=== PATIENT | male | born 1945 | race Caucasian/White ===

== ENCOUNTER 2018-07-19 00:22 | Emergency (ER) | payer OTHER ==
[2018-07-19] MEDS ORDERED: NA CHLORIDE 0.9% 1,000 ML ONE ×3 (00:40→02:58)
[2018-07-19] MEDS ORDERED: THIAMINE 200 MG/2 ML INJ ONE (01:11)
[2018-07-19] MEDS ORDERED: TETANUS & DIPHTHERIA TOX,ADULT 0.5 ML VIAL ONE (01:12)
[2018-07-19] MEDS ORDERED: MULTIVITAMINS 10 ML VIAL (INJ) IV ONE (01:12)
[2018-07-19] MEDS ORDERED: FOLIC ACID 5 MG/ML VIAL ONE (01:13)
[2018-07-19] MEDS ORDERED: ONDANSETRON 4 MG/2 ML VIAL ONE (01:24)
[2018-07-19] MEDS ORDERED: MORPHINE 2 MG/ML SYR ONE (01:24)
[2018-07-19 01:27] LABS: Protime INR 1.02
[2018-07-19 01:28] LABS: Absolute Lymphocytes (CBC) 4.3 K/uL (0.7-4.9); Absolute Monocytes 1.1 K/uL (0.1-1.3); Absolute Neutrophil 2.7 K/uL (1.8-8.0); Eosinophils % 4.9 % (0-4.4); Hematocrit 47.4 % (39.6-49.0); Lymphocytes % 49.9 % (15.3-44.8); MPV 9.3 fL (7.6-11.3); Monocytes % 12.4 % (3.3-12.3); RBC Red Blood Cell Count 4.33 M/uL (4.33-5.43)
[2018-07-19 01:40] LABS: ALT/SGPT 69 U/L (12-78); AST/SGOT 108 U/L (15-37); Albumin 3.5 g/dL (3.4-5.0); Alkaline Phosphatase 102 U/L (45-117); BUN Blood Urea Nitrogen 4 mg/dL (7-18); Bicarbonate 24 mmol/L (21-32); Bilirubin Direct 0.1 mg/dL (0-0.2); Bilirubin Total 0.4 mg/dL (0.2-1.0); Glucose Level 114 mg/dL (74-106); Magnesium 1.9 mg/dL (1.8-2.4); NT PRO-BNP 21 pg/mL (<125); Potassium 3.3 mmol/L (3.5-5.1); Protein, Total 7.5 g/dL (6.4-8.2); Sodium Level 140 mmol/L (136-145); Troponin (Emerg Dept Use Only) < 0.02 ng/mL (0.0-0.045)
[2018-07-19] MEDS ORDERED: CEFAZOLIN SODIUM 1 GM/VIAL ONE (01:49)
[2018-07-19] MEDS ORDERED: NA CHLORIDE 0.9% 50 ML IV ONE (01:53)
[2018-07-19 01:56] LABS: Blood Morphology Comment NOTED (NOT SEEN); Macrocytosis 1+; Platelet Estimate ADEQ
--- NOTE | 2018-07-19 02:05 | ER ---
Nurse's Notes [facility] Name: Mark Martin Age: 73 yrs Sex: Male : 1945 Arrival Date: 07/19/2018 Time: 00:24 Bed 3 Private MD: Diagnosis: Compound fractures distal left radius and ulna Presentation: 07/19 00:19 Presenting complaint: EMS states: EMS called to patient home, pt reports he was trying ea to go from chair to walker and lost his footing, pt reports he tried to catch himself with his left hand. Pt reports pain to left hand, EMS reports left wrist open fx. Care prior to arrival: EMS splinted left hand. Mechanism of Injury: Fall. Trauma event details: Injury occurred in the [facility], Injury occurred: at home. Injury occurred: July 19, 2018 Injury occurred at: 23:50. 00:19 Acuity: OZIEL 2 ea 00:19 Method Of Arrival: EMS: [facility] ea 00:19 Transition of care: patient was not received from another setting of care. Onset of ea symptoms was July 19, 2018. Risk Assessment: Do you want to hurt yourself or someone else? Patient reports no desire to harm self or others. Initial Sepsis Screen: Does the patient meet any 2 criteria? Systolic BP < 90 mmHg. Does the patient have a suspected source of infection? No. Patient's initial sepsis screen is negative. Trauma Activation: Alert Physician: ED Physician; Name: Silvio; Notified At: 00:22; Arrived At: 00:22 Physician: General Surgeon; Name: ; Notified At: 00:22; Arrived At: Physician: Radiology; Name: Chepe; Notified At: 00:22; Arrived At: 00:24 Physician: Respiratory; Name: ; Notified At: 00:22; Arrived At: Physician: Lab; Name: ; Notified At: 00:22; Arrived At: Historical: - Allergies: 01:26 No Known Allergies; ea - Home Meds: 01:26 None [Active]; ea - PMHx: 01:26 None; ea - PSHx: 01:26 None; ea - Immunization history:: Adult Immunizations up to date. - Social history:: Smoking status: Patient/guardian denies using tobacco, Patient uses alcohol. - Immunization history: Last tetanus immunization: unknown. - Ebola Screening: : No symptoms or risks identified at this time. Screenin:44 Abuse screen: Denies threats or abuse. Denies injuries from another. Nutritional rr5 screening: No deficits noted. Tuberculosis screening: No symptoms or risk factors identified. Fall Risk IV access (20 points). Gait- Impaired (20 pts.). Total Abrams Fall Scale indicates Low Risk Score (25-44 pts). Fall prevention measures have been instituted. Side Rails Up X 2 Placed close to Nursing Station Frequent Obs/Assesments occuring Family Present and informed to notify staff if they need to leave bedside As available Patient and Family Educated on Fall Prevention Program and strategies. Primary Survey: 00:19 NO uncontrolled hemorrhage observed. Breathing/Chest: Respiratory pattern: regular, ea Respiratory effort: spontaneous, unlabored, Chest inspection: symmetrical rise and fall of the chest. Circulation: Skin color: pink, Skin temperature: warm. Disability Alert. Exposure/Environment: All clothing and personal items were removed. Forensic evidence collection is not deemed to be indicated at this time. Items placed in patient belonging bag. 01:27 Reassessment Airway Airway Patent Breathing/Chest Respiratory pattern Regular ea Respiratory effort Spontaneous Unlabored Chest inspection Symmetrical Circulation Color [place] Disability Alert. Secondary Survey: 00:57 Injury Description: fracture to is located left wrist. ea Assessment: 00:19 General: Appears in no apparent distress. Behavior is calm, cooperative, Smells of ea alcohol. Pain: Complains of pain in left hand Quality of pain is described as aching, Pain began 30 min ago. Is continuous. Neuro: Level of Consciousness is awake, alert, obeys commands, Oriented to person, place, time, situation. Cardiovascular: Patient's skin is warm and dry. Respiratory: Airway is patent Respiratory effort is even, unlabored, Respiratory pattern is regular, symmetrical. Derm: Skin is pink, warm \T\ dry. Injury Description: Deformity sustained to left wrist is puncture noted. 00:19 GI: No deficits noted. : No deficits noted. EENT: No deficits noted. Musculoskeletal: rr5 Capillary refill < 3 seconds, left hand and wrist area Swelling present in left hand Reports pain in left hand. 00:25 Reassessment: Patient appears in no apparent distress at this time. ED provider seen rr5 the patient with order made and carried out. put on Trendelenburg position. 01:05 Reassessment: Patient appears in no apparent distress at this time. Patient is alert, rr5 oriented x 3, equal unlabored respirations, skin warm/dry/pink. complaining of left hand pain. BP 100/70mmHg ED provider aware with order made and carried out. 02:00 Reassessment: Patient appears in no apparent distress at this time. Patient is alert, rr5 oriented x 3, equal unlabored respirations, skin warm/dry/pink. Patient states feeling better. Patient states symptoms have improved. 02:56 Reassessment: Patient appears in no apparent distress at this time. Patient is alert, rr5 oriented x 3, equal unlabored respirations, skin warm/dry/pink. endorsed to [facility] vitally stable, with IV cannula G20 at right forearm infusing intact infusing well ongoing IVF NS. splint applied at left forearm. Patient states symptoms have improved. Vital Signs: 00:19 BP 86 / 64; Pulse 75; Resp 18; Temp 97.4(O); Pulse Ox 95% on R/A; Weight 68.04 kg; ea Height 5 ft. 7 in. (170.18 cm); Pain 9/10; 00:45 BP 91 / 55; Pulse 89; Resp 19; Pulse Ox 99% ; rr5 01:00 BP 100 / 70; Pulse 84; Resp 16; Pulse Ox 100% on R/A; rr5 01:15 BP 105 / 61; Pulse 86; Resp 15; Pulse Ox 98% ; rr5 01:53 BP 110 / 72; Pulse 98; Resp 17; Pulse Ox 99% ; rr5 02:09 BP 102 / 65; Pulse 95; Resp 17; Pulse Ox 99% ; rr5 02:41 BP 100 / 74; Pulse 100; Resp 19; Pulse Ox 99% ; rr5 00:19 Body Mass Index 23.49 (68.04 kg, 170.18 cm) ea Lena Coma Score: 00:19 Eye Response: spontaneous(4). Verbal Response: oriented(5). Motor Response: obeys ea commands(6). Total: 15. Trauma Score (Adult): 00:19 Eye Response: spontaneous(1); Verbal Response: oriented(1); Motor Response: obeys ea commands(2); Systolic BP: 76 to 89 mm Hg(3); Respiratory Rate: 10 to 29 per min(4); Sue Score: 15; Trauma Score: 11 ED Course: 00:19 Patient maintains SpO2 saturation greater than 95% on room air. Thermoregulation: warm ea blanket given to patient. 00:19 Arm band placed on right wrist. Patient placed in an exam room, on a stretcher, on ea monitoring analyst, on pulse oximetry. 00:24 Patient arrived in ED. fc 00:25 Beverly Rodriguez, MIKEY is Primary Nurse. ea 00:30 Inserted saline lock: 20 gauge in right forearm, using aseptic technique. Blood rr5 collected. 00:32 Triage completed. ea 00:36 Larry Anguiano MD is Attending Physician. pkl 00:44 Patient has correct armband on for positive identification. Placed in gown. Bed in low rr5 position. Call light in reach. Side rails up X2. shelter monitor on. Pulse ox on. NIBP on. 01:02 XRAY Chest (1 view) In Process Unspecified. EDMS 01:14 Wrist Left (3 View) XRAY In Process Unspecified. EDMS 02:39 No provider procedures requiring assistance completed. Patient transferred, IV remains rr5 in place. intact, No redness/swelling at site. Administered Medications: 00:30 Drug: NS 0.9% 500 ml Route: IV; Rate: bolus; Site: right forearm; rr5 01:00 Follow up: Response: No adverse reaction; IV Status: Completed infusion; IV Intake: rr5 500ml 01:00 Drug: Banana Bag - (NS 0.9% 1000 ml, foLIC Acid 1 mg, Thiamine 100 mg, Multivitamin 1 rr5 amp) Route: IV; Rate: calculated rate; Site: right forearm; 02:30 Follow up: Response: No adverse reaction; IV Status: Infusion continued upon transfer; rr5 IV Intake: 100ml 02:52 Follow up: IV Status: Order to discontinue infusion; changed to NS infusion for transfe rr5 while going to other facility. 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 Exp: rr5 04/15/2020. Lot #: [id number]. } Route: IM; Site: right deltoid; 02:29 Follow up: Response: No adverse reaction rr5 01:25 Drug: Zofran 4 mg Route: IVP; Site: right forearm; rr5 02:29 Follow up: Response: No adverse reaction rr5 01:27 Drug: morphine 2 mg Route: IVP; Site: right forearm; rr5 02:29 Follow up: Response: No adverse reaction rr5 01:40 Dru grams of (Ancef 1 grams, NS 0.9% 50 ml) Route: IVPB; Site: right forearm; rr5 02:09 Follow up: Response: No adverse reaction; IV Status: Completed infusion; IV Intake: [id number] 02:10 Drug: Potassium Chloride 10 mEq Route: IV; Rate: calculated rate; Site: right forearm; rr5 02:50 Follow up: Response: No adverse reaction; IV Status: Completed infusion; IV Intake: [id number] 02:50 Drug: NS 0.9% 1000 ml Route: IV; Rate: 125 ml/hr; Site: right forearm; rr5 03:01 Follow up: Response: No adverse reaction; IV Status: Infusion continued upon transfer rr5 Intake: 01:00 IV: 500ml; Total: 500ml. rr5 02:09 IV: 50ml; Total: 550ml. rr5 02:30 IV: 100ml; Total: 650ml. rr5 02:41 IV: 600ml (IV Fluid); Total: 1250ml. rr5 02:50 IV: 50ml; Total: 1300ml. rr5 Outcome: 02:04 ER care complete, transfer ordered by . pkjoel 02:35 Transferred by ground EMS to [facility], Transfer form completed. Note: rr[facility]. 02:35 Condition: stable 02:35 Instructed on the need for transfer. 02:42 Patient's length of stay was not longer than 2 hours. rr5 03:02 Patient left the ED. rr5 Signatures: Dispatcher [employer] EDMS Larry Anguiano MD MD pkl Chretien, Felicia, RN Beverly Thakkar RN RN ea Roque, Raymond RN RN rr5 Corrections: (The following items were deleted from the chart) 02:19 02:10 Reassessment: Patient appears in no apparent distress at this time. Patient is rr5 alert, oriented x 3, equal unlabored respirations, skin warm/dry/pink. complaining of left hand pain. BP 100/70mmHg ED provider aware with order made and carried out. rr5
--- NOTE | 2018-07-19 02:05 | EDPHYS ---
Physician Documentation [facility] Name: Mark Martin Age: 73 yrs Sex: Male : 1945 Arrival Date: 07/19/2018 Time: 00:24 Bed 3 Private MD: ED Physician Larry Anguiano HPI: 07/19 00:36 This 73 yrs old Male presents to ER via EMS with complaints of Trauma pkl Complaint. 00:36 The patient or guardian reports deformity, injury, pain. The complaints affect the left pkl wrist diffusely. Context: resulted from a fall. Onset: The symptoms/episode began/occurred just prior to arrival. Associated signs and symptoms: The patient has no apparent associated signs or symptoms. Historical: - Allergies: : No Known Allergies; ea - Home Meds: : None [Active]; ea - PMHx: : None; ea - PSHx: :26 None; ea - Immunization history:: Adult Immunizations up to date. - Social history:: Smoking status: Patient/guardian denies using tobacco, Patient uses alcohol. - Immunization history: Last tetanus immunization: unknown. - Ebola Screening: : No symptoms or risks identified at this time. ROS: 00:36 Eyes: Negative for injury, pain, redness, and discharge, ENT: Negative for injury, pkl pain, and discharge, Neck: Negative for injury, pain, and swelling, Cardiovascular: Negative for chest pain, palpitations, and edema, Respiratory: Negative for shortness of breath, cough, wheezing, and pleuritic chest pain, Abdomen/GI: Negative for abdominal pain, nausea, vomiting, diarrhea, and constipation, Back: Negative for injury and pain, : Negative for injury, bleeding, discharge, and swelling. 00:36 MS/extremity: Positive for injury or acute deformity, pain, tenderness, of the left wrist, Puncture wound noted at volar aspect left wrist. 00:36 Neuro: Negative for altered mental status. Exam: 00:36 Hand exam: Exam is positive for deformity, injury, pain, tenderness, puncture wound pkl at volar aspect left wrist. 00:36 Skin: puncture wound at volar aspect left wrist. 00:36 Head/Face: Normocephalic, atraumatic. Eyes: Pupils equal round and reactive to light, extra-ocular motions intact. Lids and lashes normal. Conjunctiva and sclera are non-icteric and not injected. Cornea within normal limits. Periorbital areas with no swelling, redness, or edema. ENT: Nares patent. No nasal discharge, no septal abnormalities noted. Tympanic membranes are normal and external auditory canals are clear. Oropharynx with no redness, swelling, or masses, exudates, or evidence of obstruction, uvula midline. Mucous membranes moist. Neck: Trachea midline, no thyromegaly or masses palpated, and no cervical lymphadenopathy. Supple, full range of motion without nuchal rigidity, or vertebral point tenderness. No Meningismus. Chest/axilla: Normal chest wall appearance and motion. Nontender with no deformity. No lesions are appreciated. Cardiovascular: Regular rate and rhythm with a normal S1 and S2. No gallops, murmurs, or rubs. Normal PMI, no JVD. No pulse deficits. Respiratory: Lungs have equal breath sounds bilaterally, clear to auscultation and percussion. No rales, rhonchi or wheezes noted. No increased work of breathing, no retractions or nasal flaring. Abdomen/GI: Soft, non-tender, with normal bowel sounds. No distension or tympany. No guarding or rebound. No evidence of tenderness throughout. Back: No spinal tenderness. No costovertebral tenderness. Full range of motion. Neuro: Awake and alert, GCS 15, oriented to person, place, time, and situation. Cranial nerves II-XII grossly intact. Motor strength 5/5 in all extremities. Sensory grossly intact. Cerebellar exam normal. Normal gait. 00:36 Musculoskeletal/extremity: Extremities: grossly normal except: noted in the left wrist: deformity, pain, puncture, tenderness. Vital Signs: 00:19 BP 86 / 64; Pulse 75; Resp 18; Temp 97.4(O); Pulse Ox 95% on R/A; Weight 68.04 kg; ea Height 5 ft. 7 in. (170.18 cm); Pain 9/10; 00:45 BP 91 / 55; Pulse 89; Resp 19; Pulse Ox 99% ; rr5 01:00 BP 100 / 70; Pulse 84; Resp 16; Pulse Ox 100% on R/A; rr5 01:15 BP 105 / 61; Pulse 86; Resp 15; Pulse Ox 98% ; rr5 01:53 BP 110 / 72; Pulse 98; Resp 17; Pulse Ox 99% ; rr5 02:09 BP 102 / 65; Pulse 95; Resp 17; Pulse Ox 99% ; rr5 02:41 BP 100 / 74; Pulse 100; Resp 19; Pulse Ox 99% ; rr5 00:19 Body Mass Index 23.49 (68.04 kg, 170.18 cm) ea Wal[place] Coma Score: 00:19 Eye Response: spontaneous(4). Verbal Response: oriented(5). Motor Response: obeys ea commands(6). Total: 15. Trauma Score (Adult): 00:19 Eye Response: spontaneous(1); Verbal Response: oriented(1); Motor Response: obeys ea commands(2); Systolic BP: 76 to 89 mm Hg(3); Respiratory Rate: 10 to 29 per min(4); Waldorf Score: 15; Trauma Score: 11 MDM: 00:36 Patient medically screened. pkl 02:00 Data reviewed: vital signs, nurses notes, lab test result(s), radiologic studies, plain pkl films. 02:00 ED course: Talked to Dr. Persaud, transfer to [facility]. pkl 04 00:38 Order name: Basic Metabolic Panel; Complete Time: 02:05 cm6 07/19 00:38 Order name: CBC with Diff; Complete Time: 02:05 cm6 07/19 00:38 Order name: LFT's; Complete Time: 02:05 cm6 07/19 00:38 Order name: Magnesium; Complete Time: 02:05 cm6 07/19 00:38 Order name: NT PRO-BNP; Complete Time: 02:05 cm6 07/19 00:38 Order name: PT-INR; Complete Time: 02:05 cm6 07/19 00:25 Order name: Wrist Left (3 View) XRAY fc 04 00:38 Order name: Troponin (emerg Dept Use Only); Complete Time: 02:05 cm6 07/19 00:38 Order name: XRAY Chest (1 view) cm6 07/19 00:43 Order name: ETOH Level; Complete Time: 02:05 pkl 07/19 01:30 Order name: Manual Differential; Complete Time: 02:05 EDMS 07/19 01:59 Order name: Wound Culture rr5 04/06 00:38 Order name: EKG; Complete Time: 00:39 cm6 07/19 00:38 Order name: Cardiac monitoring; Complete Time: 00:43 cm6 07/19 00:38 Order name: EKG - Nurse/Tech; Complete Time: 00:43 cm6 07/19 00:38 Order name: IV Saline Lock; Complete Time: 00:43 cm6 07/19 00:38 Order name: Labs collected and sent; Complete Time: 00:43 cm6 07/19 00:38 Order name: O2 Per Protocol; Complete Time: 00:43 cm6 07/19 00:38 Order name: O2 Sat Monitoring; Complete Time: 00:43 cm6 Administered Medications: 00:30 Drug: NS 0.9% 500 ml Route: IV; Rate: bolus; Site: right forearm; rr5 01:00 Follow up: Response: No adverse reaction; IV Status: Completed infusion; IV Intake: rr5 500ml 01:00 Drug: Banana Bag - (NS 0.9% 1000 ml, foLIC Acid 1 mg, Thiamine 100 mg, Multivitamin 1 rr5 amp) Route: IV; Rate: calculated rate; Site: right forearm; 02:30 Follow up: Response: No adverse reaction; IV Status: Infusion continued upon transfer; rr5 IV Intake: 100ml 02:52 Follow up: IV Status: Order to discontinue infusion; changed to NS infusion for transfe rr5 while going to other facility. 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 Exp: rr5 04/15/2020. Lot #: [id number]. } Route: IM; Site: right deltoid; 02:29 Follow up: Response: No adverse reaction rr5 01:25 Drug: Zofran 4 mg Route: IVP; Site: right forearm; rr5 02:29 Follow up: Response: No adverse reaction rr5 01:27 Drug: morphine 2 mg Route: IVP; Site: right forearm; rr5 02:29 Follow up: Response: No adverse reaction rr5 01:40 Dru grams of (Ancef 1 grams, NS 0.9% 50 ml) Route: IVPB; Site: right forearm; rr5 02:09 Follow up: Response: No adverse reaction; IV Status: Completed infusion; IV Intake: [id number] 02:10 Drug: Potassium Chloride 10 mEq Route: IV; Rate: calculated rate; Site: right forearm; rr5 02:50 Follow up: Response: No adverse reaction; IV Status: Completed infusion; IV Intake: [id number] 02:50 Drug: NS 0.9% 1000 ml Route: IV; Rate: 125 ml/hr; Site: right forearm; rr5 03:01 Follow up: Response: No adverse reaction; IV Status: Infusion continued upon transfer rr5 Disposition: 07/19/18 02:04 Transfer ordered to [facility]. Diagnosis is Compound fractures distal left radius and ulna. - Reason for transfer: Higher level of care. - Accepting physician is Dr. Bah. - Condition is Stable. - Problem is new. - Symptoms are unchanged. Signatures: Dispatcher [employer] EDMS Larry Anguiano MD MD pkBeverly Suazo RN Brent Siddiqui ea, RN RN rr5 Donna Cantu cm6 Corrections: (The following items were deleted from the chart) 01:13 01:09 Wrist Left 3 View ordered. EDMI EDMS 03:02 02:04 07/19/2018 02:04 Transfer ordered to [facility]. rr5 Diagnosis is Compound fractures distal left radius and ulna. Reason for transfer: Higher level of care. Accepting physician is Dr. Bah. Condition is Stable. Problem is new. Symptoms are unchanged. pkl
[2018-07-19] MEDS ORDERED: KCL 20 MEQ/100 mL IVPB 20 MEQ/100 ML BAG IV ONE (02:22)
[2018-07-19 04:13] VITALS: O2SAT 99
[2018-07-19 04:16] VITALS: BP 100/74
--- NOTE | 2018-07-19 07:53 | RAD REPORT ---
EXAM DESCRIPTION: RAD - Wrist Left 3 View - 07/19/2018 1:14 am CLINICAL HISTORY: Trip and fall, left hand and wrist pain COMPARISON: None. FINDINGS: Comminuted fracture of the distal radius is present. There is dorsal dislocation 1 full sh aft width and approximately 40 degree dorsal angulation deformity as well. Distal ulna fracture dislo cation is present with 1 full shaft width dorsal displacement. No pathologic component. Patient has advanced degenerative change at the trapezium first metacarpal a rticulation. 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 No foreign body or oth er soft tissue abnormality. IMPRESSION: Comminuted fracture dislocation of the right distal radius and ulna.
--- NOTE | 2018-07-19 07:54 | RAD REPORT ---
EXAM DESCRIPTION: RAD - Chest Single View - 07/19/2018 1:01 am CLINICAL HISTORY: Preop chest, fracture dislocation right wrist pending surgical repair COMPARISON: August 2014 TECHNIQUE: AP portable chest image was obtained 0040 hours . FINDINGS: No acute lung parenchymal process. Low lung volume accentuates interstitial pattern. No ac adebayo failure or volume overload suspected. Heart and vasculature are normal. No measurable pleural eff usion and no pneumothorax. No acute bony abnormality seen. No acute aortic findings suspected. IMPRESSION: No acute cardiopulmonary process. No suspicious change from comparison.
--- NOTE | 2018-07-22 11:29 | EKG ---
Test Date: 2018-07-19 Test Time: 00:41:59 [employer] Applicator: MEASUREMENT RESULTS: Intervals: Rate: 91 GA: 176 QRSD: 88 QT: 378 QTc: 464 [place]: P: 59 GA: 176 QRS: 69 T: 51 INTERPRETIVE STATEMENTS: Normal sinus rhythm Normal ECG Compared to ECG 08/24/2014 13:55:01 Sinus tachycardia no longer present Electronically Signed On 07-19-18 16:43:43 CDT by Toy Lomeli
== END 2018-07-19 03:02 | disposition short-term general hospital (02) ==
LOC: ER 00:22
DX: S52.502B Unspecified fracture of the lower end of left radius, initial encounter for open fracture type I or II (principal); S52.202B Unspecified fracture of shaft of left ulna, initial encounter for open fracture type I or II; W19.XXXA Unspecified fall, initial encounter; Y93.9 Activity, unspecified; Y92.9 Unspecified place or not applicable; Z23 Encounter for immunization
CPT/HCPCS: 96365; 96367; 96361; 96368; 93005; 87070; 85025; 80048; 36415; 80320; 83735; 87205; 85610; 80076; 84484; 83880; 71045; 73110; 90714; 96375; 99285; J3411; J2270; J7030 ×3; J2405; J0690

== ENCOUNTER 2019-03-31 17:34 | Emergency (ER) | payer OTHER ==
--- OUTSIDE RECORDS SUMMARY | 2019-03-31 17:36 | XMS REPORT ---
:1945 [facility] Address [address] [place] [address] Dr. Nicolas [address] [place] [id number] Care Team Providers Name Role Phone Unavailable Unavailable Unavailable Problems This patient has no known problems. Allergies, Adverse Reactions, Alerts This patient has no known allergies or adverse reactions. Medications This patient has no known medications. Encounters Start End Encounter Admission Attending Care Care Encounter Date/Time Date/Time Type Type Clinicians Facility Department ID 2018-07-19 Inpatient [facility] MED [id number] 05:29:00
--- NOTE | 2019-03-31 18:55 | RAD REPORT ---
EXAM DESCRIPTION: CT - Head Brain Wo Cont - 03/31/2019 6:27 pm CLINICAL HISTORY: Fall, trauma the left-side of head COMPARISON: None. TECHNIQUE: Axial 5 mm thick images of the head were obtained without IV contrast. All CT scans are performed using dose optimization technique as appropriate and may include automated exposure control or mA/KV adjustment according to patient size. FINDINGS: No intracranial hemorrhage, mass, edema or shift of mid-line structures. No acute infarcti on changes seen. Mild to moderate atrophy and chronic ischemic changes are present. Ventricles are in proportion to volume loss. Arterial and physiologic calcifications are present. Mastoid air cells and visualized portions of the paranasal sinuses are clear. No acute bony findings. IMPRESSION: No hemorrhage, edema or acute CT Head finding. Mild to moderate atrophy and chronic ischemic change with ventricles in proportion.
--- NOTE | 2019-03-31 19:05 | ER ---
Nurse's Notes [facility] Name: Mark Martin Age: 73 yrs Sex: Male : 1945 Arrival Date: 03/31/2019 Time: 17:35 Bed 6 Private MD: Anastacio Guaman E Diagnosis: Superficial injury of head Presentation: 03/31 17:45 Presenting complaint: Patient states: Was washing dishes, then turned to get phone and ss fell from standing position, striking L side of forehead on dean of men. Denies pain, Denies LOC. Pt states, "I already do not have any balance, and I also drink every day. I've had 5 shots of vodka mixed with OJ". Transition of care: patient was not received from another setting of care. Onset of symptoms was March 31, 2019. Risk Assessment: Do you want to hurt yourself or someone else? Patient reports no desire to harm self or others. Initial Sepsis Screen: Does the patient meet any 2 criteria? HR > 90 bpm. Does the patient have a suspected source of infection? No. Patient's initial sepsis screen is negative. Care prior to arrival: None. 17:45 Method Of Arrival: Ambulatory ss 17:45 Acuity: OZIEL 4 ss Triage Assessment: 17:45 General: Appears in no apparent distress. comfortable, Behavior is calm, cooperative, bp appropriate for age. Pain: Complains of pain in forehead. EENT: No deficits noted. Neuro: No deficits noted. Cardiovascular: Rhythm is sinus tachycardia. Respiratory: No deficits noted. GI: No signs and/or symptoms were reported involving the gastrointestinal system. : No signs and/or symptoms were reported regarding the genitourinary system. Derm: No deficits noted. Musculoskeletal: No deficits noted. Historical: - Allergies: 17:48 No Known Allergies; ss - Home Meds: 17:48 None [Active]; ss - PMHx: 17:48 neuropathy; ss - PSHx: 17:48 Knee surgery; wrist; ss - Immunization history:: Adult Immunizations up to date. - Social history:: Smoking status: Patient uses tobacco products, smokes one pack cigarettes per day. Patient uses alcohol, on a daily basis. - Ebola Screening: : Patient denies exposure to infectious person Patient denies travel to an Ebola-affected area in the 21 days before illness onset. Screenin:23 Abuse screen: Denies threats or abuse. Denies injuries from another. Nutritional bp screening: No deficits noted. Tuberculosis screening: No symptoms or risk factors identified. Fall Risk None identified. Assessment: 17:45 General: SEE TRIAGE NOTE. bp 18:23 Reassessment: PT TO CT. bp 18:44 Reassessment: PT RETURNED FROM CT. NEUROVASCULAR INTACT. bp 19:18 Reassessment: DC instructions given to patient and patient agree with the POC and to jb4 follow up with PCP. Vital Signs: 17:44 BP 109 / 76; Pulse 104; Resp 18; Temp 98.1(O); Pulse Ox 95% on R/A; Weight 65.77 kg; ss Height 5 ft. 7 in. (170.18 cm); Pain 0/10; 18:50 BP 112 / 72; Pulse 95; Resp 16; Pulse Ox 91% ; Pain 0/10; vc 17:44 Body Mass Index 22.71 (65.77 kg, 170.18 cm) ED Course: 17:35 Patient arrived in ED. am2 17:36 Anastacio Guaman MD is Private Physician. am2 17:44 Arm band placed on right wrist. ss 17:47 Triage completed. ss 17:48 [facility] jr8 17:48 Anastacio Joshi MD is Attending Physician. jr8 18:00 Thor Ramesh, MIKEY is Primary Nurse. bp 18:23 Patient has correct armband on for positive identification. Bed in low position. Call bp light in reach. Side rails up X2. 19:04 Anastacio Guaman MD is Referral Physician. jr8 19:17 No provider procedures requiring assistance completed. Patient did not have IV access jb4 during this emergency room visit. Administered Medications: No medications were administered Outcome: 19:04 Discharge ordered by . jr8 19:17 Discharged to home ambulatory. jb4 19:17 Condition: stable 19:17 Discharge instructions given to patient, Instructed on discharge instructions, follow up and referral plans. Demonstrated understanding of instructions, follow-up care, medications. 19:18 Patient left the ED. jb4 Signatures: Karley Garcia RN RN Thomas Roldan PA PA 8 Marlon Gillespie RN RN jb4 Yeskia Lubin am2 Thor Ramesh RN RN bp Lisbeth Donovan, RN RN vc
--- NOTE | 2019-03-31 19:06 | EDPHYS ---
Physician Documentation [facility] Name: Mark Martin Age: 73 yrs Sex: Male : 1945 Arrival Date: 03/31/2019 Time: 17:35 Bed 6 Private MD: Anastacio Guaman E ED Physician Anastacio Joshi HPI: 03/31 18:11 This 73 yrs old Male presents to ER via Ambulatory with complaints of Fall jr8 Injury, forehead contusion. 18:11 Details of fall: The patient fell from an upright position, while standing. Onset: The jr8 symptoms/episode began/occurred acutely, today. Associated injuries: The patient sustained injury to the head, contusion, tenderness. Severity of symptoms: At their worst the symptoms were mild, in the emergency department the symptoms are unchanged. The patient has not experienced similar symptoms in the past. The patient has not recently seen a physician. 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 Denies LOC. Pain to head. Denies neck pain or pain anywhere else . Historical: - Allergies: 17:48 No Known Allergies; ss - Home Meds: 17:48 None [Active]; ss - PMHx: 17:48 neuropathy; ss - PSHx: 17:48 Knee surgery; wrist; ss - Immunization history:: Adult Immunizations up to date. - Social history:: Smoking status: Patient uses tobacco products, smokes one pack cigarettes per day. Patient uses alcohol, on a daily basis. - Ebola Screening: : Patient denies exposure to infectious person Patient denies travel to an Ebola-affected area in the 21 days before illness onset. ROS: 18:11 Eyes: Negative for injury, pain, redness, and discharge, ENT: Negative for injury, jr8 pain, and discharge, Neck: Negative for injury, pain, and swelling, Cardiovascular: Negative for chest pain, palpitations, and edema, Respiratory: Negative for shortness of breath, cough, wheezing, and pleuritic chest pain, Abdomen/GI: Negative for abdominal pain, nausea, vomiting, diarrhea, and constipation, Back: Negative for injury and pain, MS/Extremity: Negative for injury and deformity. 18:11 Skin: Positive for hematoma, of the face. 18:11 Neuro: Positive for headache, Negative for altered mental status, dizziness, gait disturbance, loss of consciousness, syncope. Exam: 18:11 Eyes: Pupils equal round and reactive to light, extra-ocular motions intact. Lids and jr8 lashes normal. Conjunctiva and sclera are non-icteric and not injected. Cornea within normal limits. Periorbital areas with no swelling, redness, or edema. ENT: Nares patent. No nasal discharge, no septal abnormalities noted. Tympanic membranes are normal and external auditory canals are clear. Oropharynx with no redness, swelling, or masses, exudates, or evidence of obstruction, uvula midline. Mucous membranes moist. Neck: Trachea midline, no thyromegaly or masses palpated, and no cervical lymphadenopathy. Supple, full range of motion without nuchal rigidity, or vertebral point tenderness. No Meningismus. Chest/axilla: Normal chest wall appearance and motion. Nontender with no deformity. No lesions are appreciated. Cardiovascular: Regular rate and rhythm with a normal S1 and S2. No gallops, murmurs, or rubs. Normal PMI, no JVD. No pulse deficits. Respiratory: Lungs have equal breath sounds bilaterally, clear to auscultation and percussion. No rales, rhonchi or wheezes noted. No increased work of breathing, no retractions or nasal flaring. Abdomen/GI: Soft, non-tender, with normal bowel sounds. No distension or tympany. No guarding or rebound. No evidence of tenderness throughout. Back: No spinal tenderness. No costovertebral tenderness. Full range of motion. Skin: Warm, dry with normal turgor. Normal color with no rashes, no lesions, and no evidence of cellulitis. MS/ Extremity: Pulses equal, no cyanosis. Neurovascular intact. Full, normal range of motion. Neuro: Awake and alert, GCS 15, oriented to person, place, time, and situation. Cranial nerves II-XII grossly intact. Motor strength 5/5 in all extremities. Sensory grossly intact. Cerebellar exam normal. Normal gait. 18:11 Head/face: Noted is hematoma, that is mild, of the forehead. Vital Signs: 17:44 BP 109 / 76; Pulse 104; Resp 18; Temp 98.1(O); Pulse Ox 95% on R/A; Weight 65.77 kg; ss Height 5 ft. 7 in. (170.18 cm); Pain 0/10; 18:50 BP 112 / 72; Pulse 95; Resp 16; Pulse Ox 91% ; Pain 0/10; vc 17:44 Body Mass Index 22.71 (65.77 kg, 170.18 cm) MDM: 17:49 Patient medically screened. jr8 19:04 Data reviewed: vital signs, nurses notes, radiologic studies, CT scan. Data jr8 interpreted: Pulse oximetry: on room air is 96 %. Interpretation: normal. Counseling: I had a detailed discussion with the patient and/or guardian regarding: the historical points, exam findings, and any diagnostic results supporting the discharge/admit diagnosis, radiology results, the need for outpatient follow up, a family practitioner, to return to the emergency department if symptoms worsen or persist or if there are any questions or concerns that arise at home. 03/31 18:09 Order name: CT Head Brain wo Cont jr8 03/31 18:59 Order name: CT; Complete Time: 19:04 EDMS Administered Medications: No medications were administered Disposition: 21:22 Co-signature as Attending Physician, Anastacio Joshi MD I agree with the assessment and wa plan of care. Disposition: 03/31/19 19:04 Discharged to Home. Impression: Superficial injury of head. - Condition is Stable. - Discharge Instructions: Head Injury, Adult, Hematoma. - Medication Reconciliation Form, Thank You Letter, Antibiotic Education, Prescription Opioid Use form. - Follow up: Anastacio Guaman MD; When: As needed; Reason: Recheck today's complaints, Continuance of care, Re-evaluation by your physician. - Problem is new. - Symptoms have improved. Signatures: Dispatcher [employer] EDFL Karley Garcia RN RN Thomas Roldan PA PA jr8 Marlon Gillespie RN RN jb4 Anastacio Joshi MD MD wa Corrections: (The following items were deleted from the chart) 19:18 19:04 03/31/2019 19:04 Discharged to Home. Impression: Superficial injury of head. jb4 Condition is Stable. Forms are Medication Reconciliation Form, Thank You Letter, Antibiotic Education, Prescription Opioid Use. Follow up: Anastacio Guaman; When: As needed; Reason: Recheck today's complaints, Continuance of care, Re-evaluation by your physician. Problem is new. Symptoms have improved. jr8
[2019-03-31 19:24] VITALS: TEMP 98.1
[2019-03-31 19:26] VITALS: BP 112/72; O2SAT 91
== END 2019-03-31 19:18 | disposition home or self-care (01) ==
LOC: ER 17:34
DX: S00.83XA Contusion of other part of head, initial encounter (principal); W18.09XA Striking against other object with subsequent fall, initial encounter; Y93.9 Activity, unspecified; Y92.9 Unspecified place or not applicable; F17.210 Nicotine dependence, cigarettes, uncomplicated
CPT/HCPCS: 70450; 99284

== ENCOUNTER 2021-07-08 20:24 | Emergency (ER) | payer OTHER ==
--- OUTSIDE RECORDS SUMMARY | 2021-07-08 20:27 | XMS REPORT | Continuity of Care Document ---
:1945 Author Organization [facility] t Address [address] [place] [address] Dr. Nicolas [address] [place] [id number] Care Team Providers Name Role Phone Unavailable Unavailable Unavailable Payers Payer Name Policy Type Policy Number Effective Date Expiration Date S [facility] [id number] (MEDICARE 00:00:00 REPLACEMENT HMO) Problems This patient has no known problems. Allergies, Adverse Reactions, Alerts This patient has no known allergies or adverse reactions. Medications This patient has no known medications. Procedures This patient has no known procedures. Encounters Start End Encounter Admission Attending Care Care Encounter Source Date/Time Date/Time Type Type Clinicians Facility Department ID 2018-07-19 Inpatient U [id number] 05:29:00 2021-02-10 2021-02-10 Outpatient [facility] [id number] [facility] 08:01:00 08:01:00 [facility] Results This patient has no known results.
[2021-07-08 21:28] LABS: Absolute Lymphocytes (CBC) 2.5 K/uL (0.7-4.9); Hematocrit 50.4 % (39.6-49.0); Lymphocytes % 32.6 % (15.3-44.8); MPV 9.2 fL (7.6-11.3); RBC Red Blood Cell Count 4.68 M/uL (4.33-5.43)
[2021-07-08 21:38] LABS: Protime INR 0.93
[2021-07-08 21:45] LABS: ALT/SGPT 55 U/L (12-78); AST/SGOT 70 U/L (15-37); Albumin 3.9 g/dL (3.4-5.0); Alkaline Phosphatase 158 U/L (45-117); BUN Blood Urea Nitrogen 7 mg/dL (7-18); Bicarbonate 26 mmol/L (21-32); Bilirubin Direct 0.2 mg/dL (0-0.2); Bilirubin Total 0.5 mg/dL (0.2-1.0); CKMB Creatine Kinase MB 2.5 ng/mL (1.0-3.6); Creatine Phosphokinase 156 U/L (39-308); Glucose Level 96 mg/dL (74-106); Lipase 244 U/L (73-393); Magnesium 2.4 mg/dL (1.8-2.4); Potassium 3.6 mmol/L (3.5-5.1); Protein, Total 8.7 g/dL (6.4-8.2); Sodium Level 137 mmol/L (136-145)
[2021-07-08] MEDS ORDERED: DIPHENHYDRAMINE 50 MG/ML VIAL ONE (22:00)
[2021-07-08] MEDS ORDERED: FAMOTIDINE 20 MG/2 ML VIAL IV ONE (22:00)
[2021-07-08] MEDS ORDERED: NA CHLORIDE 0.9% 1,000 ML ONE (22:00)
[2021-07-08] MEDS ORDERED: METHYLPREDNISOLONE 125 MG INJ ONE (22:27)
[2021-07-08 23:52] LABS: Urine Blood Negative (Negative); Urine Glucose Negative (Negative); Urine Protein Negative (Negative); Urine Specific Gravity <=1.005 (1.005-1.030); Urine pH 5.5 (5.0-7.0)
--- NOTE | 2021-07-08 23:52 | ER ---
Nurse's Notes [facility] Name: Mark Martin Age: 76 yrs Sex: Male : 1945 Arrival Date: 07/08/2021 Time: 20:25 Bed 8 Private MD: Diagnosis: Rash and other nonspecific skin eruption Presentation: 07/08 20:32 Chief complaint: Pt states he has been having a rash and severe itching for approx 3 ab2 days. Girlfriend states it started when he started a new medication, but it unsure of the medicine. Pt c/o SOB. Pt also states he has been passing out frequently. Coronavirus screen: Vaccine status: Patient reports being unvaccinated. Client denies travel out of the [place] in the last 14 days. At this time, the client does not indicate any symptoms associated with coronavirus-19. Ebola Screen: Patient negative for fever greater than or equal to 101.5 degrees Fahrenheit, and additional compatible Ebola Virus Disease symptoms Patient denies exposure to infectious person. Patient denies travel to an Ebola-affected area in the 21 days before illness onset. No symptoms or risks identified at this time. Initial Sepsis Screen: Does the patient meet any 2 criteria? No. Patient's initial sepsis screen is negative. Does the patient have a suspected source of infection? No. Patient's initial sepsis screen is negative. Risk Assessment: Do you want to hurt yourself or someone else? Patient reports no desire to harm self or others. Onset of symptoms is unknown. 20:32 Method Of Arrival: Ambulatory ab2 20:32 Acuity: OZIEL 3 ab2 Triage Assessment: 20:39 General: Appears in no apparent distress. uncomfortable, Behavior is anxious. ab2 Respiratory: Reports shortness of breath Airway is patent Onset: The symptoms/episode began/occurred at an unknown time. the patient has mild shortness of breath. Historical: - Allergies: 20:37 No Known Allergies; ab2 - PMHx: 20:37 neuropathy; ab2 - PSHx: 20:37 Unable to Obtain; ab2 - Immunization history:: Adult Immunizations up to date. - Social history:: Smoking status: unknown Patient uses alcohol, on a daily basis. Screenin:20 Abuse screen: Denies threats or abuse. Denies injuries from another. Nutritional lp1 screening: No deficits noted. Tuberculosis screening: No symptoms or risk factors identified. Fall Risk Total Abrams Fall Scale indicates High Risk Score (45 or more points). Fall prevention measures have been instituted. Side Rails Up X 2. Assessment: 20:38 Pain: Complains of pain in Whole body pain and itching. Respiratory: Airway is patent ab2 Respiratory effort is even, unlabored. 20:40 General: Appears in no apparent distress. Behavior is anxious, restless. Pain: lp1 Complains of pain in general body, trunk, bilateral arms Quality of pain is described as burning. Neuro: Level of Consciousness is awake, alert, obeys commands, Oriented to person, place, situation, Patient is not good historian of medical history . Cardiovascular: Patient's skin is warm and dry. Respiratory: Airway is patent Respiratory effort is even, unlabored, Respiratory pattern is regular, Breath sounds are clear bilaterally. GI: Abdomen is non-distended. : No signs and/or symptoms were reported regarding the genitourinary system. EENT: No signs and/or symptoms were reported regarding the EENT system. Derm: Rash noted that is raised, urticaria. 22:00 Reassessment: Patient appears in no apparent distress at this time. Patient and/or lp1 family updated on plan of care and expected duration. Pain level reassessed. Patient reports mild itching at this time. 07/09 00:03 Cardiovascular: Rhythm is regular. kd3 Vital Signs: 07/08 20:32 BP 115 / 77; Pulse 84; Resp 17; Temp 97.6(TE); Pulse Ox 99% on R/A; Weight 65.77 kg; ab2 Height 5 ft. 7 in. (170.18 cm); Pain 10/10; 22:13 BP 120 / 80; Pulse 87; Resp 20; Pulse Ox 100% on R/A; lp1 07/09 00:05 BP 108 / 75; Pulse 94; Resp 17; Pulse Ox 100% on R/A; kd3 07/08 20:32 Body Mass Index 22.71 (65.77 kg, 170.18 cm) ab2 ED Course: 07/08 20:25 Patient arrived in ED. kc5 20:37 Triage completed. ab2 20:39 Arm band placed on right wrist. ab2 20:40 Ria Tanner, RN is Primary Nurse. lp1 20:45 Patient has correct armband on for positive identification. Placed in gown. Bed in low lp1 position. shelter monitor on. Pulse ox on. NIBP on. 20:49 No Anguiano FNP-C is [facility]. kb 20:49 Jareth Pinedo MD is Attending Physician. kb 21:00 Inserted saline lock: 20 gauge in left antecubital area, using aseptic technique. Blood oe collected. 22:49 X-ray completed. Portable x-ray completed in exam room. Patient tolerated procedure mh1 well. 22:52 Chest Single View XRAY In Process Unspecified. EDMS 07/09 00:03 No provider procedures requiring assistance completed. IV discontinued, intact, kd3 bleeding controlled, No redness/swelling at site. Pressure dressing applied. Administered Medications: 07/08 22:12 Drug: Benadryl (diphenhydrAMINE) 12.5 mg Route: IVP; Site: left antecubital; lp1 07/09 00:04 Follow up: Response: No adverse reaction kd3 07/08 22:12 Drug: Pepcid (famotidine) 20 mg Route: IVP; Site: left antecubital; lp1 07/09 00:04 Follow up: Response: No adverse reaction kd3 07/08 22:12 Drug: NS 0.9% 1000 ml Route: IV; Rate: 1000 ml; Site: left antecubital; lp1 07/09 00:04 Follow up: IV Status: Completed infusion kd3 07/08 22:32 CANCELLED (Duplicate Order): SOLU-Medrol (methylPrednisoLONE) 2 mg/kg IVP once kb 22:32 Drug: SOLU-Medrol (methylPrednisoLONE) 125 mg Route: IVP; Site: left antecubital; lp1 07/09 00:04 Follow up: Response: No adverse reaction kd3 Outcome: 07/08 23:51 Discharge ordered by . kb 07/09 00:03 Discharged to home via wheelchair, with family. kd3 Condition: stable Discharge instructions given to patient, Instructed on discharge instructions, follow up and referral plans. medication usage, Demonstrated understanding of instructions, follow-up care, medications, Prescriptions given X 2. 00:05 Patient left the ED. kd3 Signatures: Dispatcher [employer] EDNC No Anguiano FNP-C FNP-Ckb Leann Donato mh1 Ria Tanner, MIKEY RN lp1 Denny Jackson Kyli, RN RN kd3 Abby Hamlin kc5 Brian Monreal ab2
--- NOTE | 2021-07-08 23:52 | EDPHYS ---
Physician Documentation [facility] Name: Mark Martin Age: 76 yrs Sex: Male : 1945 Arrival Date: 07/08/2021 Time: 20:25 Bed 8 Private MD: ED Physician Jareth Pinedo HPI: 07/08 23:52 This 76 yrs old Male presents to ER via Ambulatory with complaints of Breathing kb Difficulty. 23:52 The patient's rash thought to be caused by an unknown cause. The rash is located on the kb left arm and right arm and abdomen and chest and back and face. The rash can be described as erythematous. Onset: The symptoms/episode began/occurred 1 week(s) ago. Associated signs and symptoms: Pertinent positives: itching. Severity of symptoms: At their worst the symptoms were moderate in the emergency department the symptoms are unchanged. The patient has not experienced similar symptoms in the past. The patient has been recently seen by a physician:. Pt reports rash that started a week ago. States he went to his pcp and was given 5 days of steroids. the rash started going away, but once he stopped the steroids it came back. States he has been drinking a few shots of vodka so he can sleep through the itching. Reports he has been passing out for brief times intermittently. Historical: - Allergies: 20:37 No Known Allergies; ab2 - PMHx: 20:37 neuropathy; ab2 - PSHx: 20:37 Unable to Obtain; ab2 - Immunization history:: Adult Immunizations up to date. - Social history:: Smoking status: unknown Patient uses alcohol, on a daily basis. ROS: 21:36 Constitutional: Negative for fever, chills, and weight loss. kb 21:36 Skin: Positive for rash. 21:36 Neuro: Positive for syncope. 21:36 All other systems are negative. Exam: 21:35 Constitutional: This is a well developed, well nourished patient who is awake, alert, kb and in no acute distress. Head/Face: Normocephalic, atraumatic. ENT: Moist Mucous membranes Cardiovascular: Regular rate and rhythm with a normal S1 and S2. No gallops, murmurs, or rubs. No pulse deficits. Respiratory: Respirations even and unlabored. No increased work of breathing. Talking in full sentences MS/ Extremity: Pulses equal, no cyanosis. Neurovascular intact. Full, normal range of motion. Neuro: Awake and alert, GCS 15, oriented to person, place, time, and situation. Moves all extremities. Normal gait. Psych: Awake, alert, with orientation to person, place and time. Behavior, mood, and affect are within normal limits. 21:35 Skin: rash a moderate rash is noted, rash can be described as erythematous, on the face, back, chest, abdomen, right arm and left arm. 21:35 ECG was reviewed by the Attending Physician. kb Vital Signs: 20:32 BP 115 / 77; Pulse 84; Resp 17; Temp 97.6(TE); Pulse Ox 99% on R/A; Weight 65.77 kg; ab2 Height 5 ft. 7 in. (170.18 cm); Pain 10/10; 22:13 BP 120 / 80; Pulse 87; Resp 20; Pulse Ox 100% on R/A; lp1 07/09 00:05 BP 108 / 75; Pulse 94; Resp 17; Pulse Ox 100% on R/A; kd3 07/08 20:32 Body Mass Index 22.71 (65.77 kg, 170.18 cm) ab2 MDM: 07/08 20:49 Patient medically screened. kb 21:35 Data reviewed: vital signs, nurses notes. Data interpreted: Pulse oximetry: on room air kb is 99 %. Interpretation: normal. 23:38 Counseling: I had a detailed discussion with the patient and/or guardian regarding: the kb historical points, exam findings, and any diagnostic results supporting the discharge/admit diagnosis, lab results, radiology results, the need for outpatient follow up, a family practitioner, to return to the emergency department if symptoms worsen or persist or if there are any questions or concerns that arise at home. 07/08 20:58 Order name: Basic Metabolic Panel; Complete Time: 21:49 kb 07/08 20:58 Order name: CBC with Diff; Complete Time: 21:35 kb 07/08 20:58 Order name: CPK; Complete Time: 21:49 kb 07/08 20:58 Order name: Ckmb; Complete Time: 21:49 kb 07/08 20:58 Order name: Hepatic Function; Complete Time: 21:49 kb 07/08 20:58 Order name: Lipase; Complete Time: 21:49 kb 07/08 20:58 Order name: Magnesium; Complete Time: 21:49 kb 07/08 20:58 Order name: Protime (+inr); Complete Time: 21:42 kb 07/08 20:58 Order name: Ptt, Activated; Complete Time: 21:42 kb 07/08 22:32 Order name: Chest Single View XRAY kb 07/08 23:53 Order name: Urine Dipstick-Ancillary; Complete Time: 23:55 EDMS 07/08 20:58 Order name: EKG; Complete Time: 20:59 kb 07/08 20:58 Order name: Cardiac monitoring; Complete Time: 21:53 kb 07/08 20:58 Order name: EKG - Nurse/Tech; Complete Time: 21:52 kb 07/08 20:58 Order name: IV Saline Lock; Complete Time: 21:53 kb 07/08 20:58 Order name: Labs collected and sent; Complete Time: 21:53 kb 07/08 20:58 Order name: NPO; Complete Time: 21:53 kb 07/08 20:58 Order name: O2 Per Protocol; Complete Time: 21:53 kb 07/08 20:58 Order name: O2 Sat Monitoring; Complete Time: 21:53 kb 07/08 20:58 Order name: Urine Dipstick-Ancillary (obtain specimen); Complete Time: 23:48 kb EC:35 Rate is 90 beats/min. Rhythm is regular. QRS Morgan is Normal. ME interval is normal at kb 168 msec. QRS interval is normal at 82 msec. QT interval is normal at 386 msec. Administered Medications: 22:12 Drug: Benadryl (diphenhydrAMINE) 12.5 mg Route: IVP; Site: left antecubital; [facility] 07/09 00:04 Follow up: Response: No adverse reaction 07/08 22:12 Drug: Pepcid (famotidine) 20 mg Route: IVP; Site: left antecubital; 1 07/09 00:04 Follow up: Response: No adverse reaction 07/08 22:12 Drug: NS 0.9% 1000 ml Route: IV; Rate: 1000 ml; Site: left antecubital; 1 07/09 00:04 Follow up: IV Status: Completed infusion 07/08 22:32 CANCELLED (Duplicate Order): SOLU-Medrol (methylPrednisoLONE) 2 mg/kg IVP once kb 22:32 Drug: SOLU-Medrol (methylPrednisoLONE) 125 mg Route: IVP; Site: left antecubital; lp1 07/09 00:04 Follow up: Response: No adverse reaction kd3 Disposition: 01:17 Co-signature as Attending Physician, Jareth Pinedo MD. [email or web address] Disposition Summary: 07/08/21 23:51 Discharge Ordered Location: Home kb Condition: Stable kb Diagnosis - Rash and other nonspecific skin eruption kb Followup: kb - With: Emergency Department - When: As needed - Reason: Worsening of condition Followup: kb - With: Private Physician - When: 2 - 3 days - Reason: Recheck today's complaints, Continuance of care, Re-evaluation by your physician Discharge Instructions: - Discharge Summary Sheet kb - Rash, Adult, [id number] kb Forms: - Medication Reconciliation Form kb - Thank You Letter kb - Antibiotic Education kb - Prescription Opioid Use kb Prescriptions: - Pepcid 20 mg Oral Tablet - take 1 tablet by ORAL route every 12 hours for 5 days; 10 tablet; Refills: 0, kb Product Selection Permitted - Prednisone 20 mg Oral Tablet - take 1 tablet by ORAL route once daily for 5 days; 5 tablet; Refills: 0, kb Product Selection Permitted Signatures: Dispatcher [employer] No Conn, JENNIFER TANNER-Ria Grajeda RN RN lp1 Jareth Pinedo MD MD 7 Brian Monreal Kyli RN kd3 Corrections: (The following items were deleted from the chart) 07/08 22:32 20:58 SOLU-Medrol (methylPrednisoLONE) 2 mg/kg IVP once ordered. kb kb 22:32 22:32 SOLU-Medrol (methylPrednisoLONE) 2 mg/kg IVP once ordered. kb kb
[2021-07-09 00:33] VITALS: TEMP 97.6
[2021-07-09 00:34] VITALS: O2SAT 100
[2021-07-09 00:36] VITALS: BP 108/75
--- NOTE | 2021-07-10 09:26 | RAD REPORT ---
EXAM DESCRIPTION: RAD - Chest Single View - 07/08/2021 10:51 pm CLINICAL HISTORY: DYSPNEA. COMPARISON: None. TECHNIQUE: Single view AP chest radiograph(s). FINDINGS: Trace diffuse pulmonary interstitial thickening. No infiltrate identified. No pleural effu rafael. No pneumothorax. Nonenlarged cardiomediastinal silhouette. No significant osseous abnormality. IMPRESSION: Trace diffuse pulmonary interstitial thickening. No infiltrate identified. Electronically signed by: Nel Thompson MD 07/08/2021 11:32 PM CDT Due to temporary technical issues with the PACS/Fluency reporting system, reports are being signed by the in house radiologist without review as a courtesy to ensure prompt reporting. The interpreting r adiologist is fully responsible for the content of the report.
--- NOTE | 2021-07-11 12:39 | EKG ---
Test Date: 2021-07-08 Test Time: 21:26:40 Senior Paralegal: JOHN MEASUREMENT RESULTS: Intervals: Rate: 90 HI: 168 QRSD: 82 QT: 386 QTc: 472 [place]: P: 41 HI: 168 QRS: 29 T: 22 INTERPRETIVE STATEMENTS: Normal sinus rhythm Normal ECG Compared to ECG 07/19/2018 00:41:59 No significant changes Electronically Signed On 07-11-21 12:33:41 CDT by Caleb Martin
== END 2021-07-09 00:05 | disposition home or self-care (01) ==
LOC: ER 20:24
DX: R21 Rash and other nonspecific skin eruption (principal)
CPT/HCPCS: 96361; 93005; 85025; 80048; 36415; 83735; 82550; 85610; 80076; 85730; 81003; 82553; 83690; 71045; 96375; 96374; 99284; J1200; J7030; J2930

== ENCOUNTER 2021-07-20 09:36 | Emergency (ER) | payer OTHER ==
--- OUTSIDE RECORDS SUMMARY | 2021-07-20 09:38 | XMS REPORT | Continuity of Care Document ---
:1945 Author Organization [facility] t Address [address] [place] [address] Dr. Nicolas [address] [place] [id number] Care Team Providers Name Role Phone Unavailable Unavailable Unavailable Payers Payer Name Policy Type Policy Number Effective Date Expiration Date S [facility] [id number] 2021 (MEDICARE 00:00:00 REPLACEMENT HMO) Problems This patient has no known problems. Allergies, Adverse Reactions, Alerts This patient has no known allergies or adverse reactions. Medications This patient has no known medications. Procedures This patient has no known procedures. Encounters Start End Encounter Admission Attending Care Care Encounter Source Date/Time Date/Time Type Type Clinicians Facility Department ID 2018-07-19 Inpatient U [facility] [id number] [facility] 05:29:00 2021-02-10 2021-02-10 Outpatient [facility] [id number] [facility] 08:01:00 08:01:00 [facility] Results This patient has no known results.
[2021-07-20] MEDS ORDERED: DIPHENHYDRAMINE 50 MG/ML VIAL ONE (10:20)
[2021-07-20] MEDS ORDERED: NA CHLORIDE 0.9% 500 ML ONE (10:20)
[2021-07-20] MEDS ORDERED: METHYLPREDNISOLONE 125 MG INJ ONE (10:20)
[2021-07-20 10:54] LABS: Absolute Lymphocytes (CBC) 1.4 K/uL (0.7-4.9); Hematocrit 39.6 % (39.6-49.0); Lymphocytes % 16.8 % (15.3-44.8); MPV 8.8 fL (7.6-11.3)
[2021-07-20 11:10] LABS: Albumin 3.5 g/dL (3.4-5.0); Bilirubin Total 1.3 mg/dL (0.2-1.0); C-Reactive Protein 24.7 mg/L (<3.00); Protein, Total 7.5 g/dL (6.4-8.2)
[2021-07-20 11:14] LABS: Potassium 4.8 mmol/L (3.5-5.1)
--- NOTE | 2021-07-20 11:59 | ER ---
Nurse's Notes [facility] Name: Mark Martin Age: 76 yrs Sex: Male : 1945 Arrival Date: 07/20/2021 Time: 09:36 Bed 5 Private MD: Anastacio Guaman E Diagnosis: Rash and other nonspecific skin eruption;Dermatitis, unspecified Presentation: 07/20 09:52 Chief complaint: Patient states: he came into contact with house paint three weeks ago, ap3 and developed a rash on his left arm, which spread to his back and right arm. Patient states it was at that point he was evaluated at the ED for for rash. Patient presents to the ED today reporting worsening in symptoms, with burning and itching accompanying the rash. Patient states he has an appointment with a dental director on July 26. Coronavirus screen: At this time, the client does not indicate any symptoms associated with coronavirus-19. Ebola Screen: No symptoms or risks identified at this time. Initial Sepsis Screen: Does the patient meet any 2 criteria? HR > 90 bpm. Does the patient have a suspected source of infection? No. Patient's initial sepsis screen is negative. Risk Assessment: Do you want to hurt yourself or someone else? Patient reports no desire to harm self or others. Onset of symptoms was June 29, 2021. 09:52 Method Of Arrival: Ambulatory ap3 09:52 Acuity: OZIEL 4 ap3 Triage Assessment: 09:54 General: Appears uncomfortable, Behavior is calm, cooperative, appropriate for age. ap3 Pain: Complains of pain in back, right arm and left arm. Neuro: Level of Consciousness is awake, alert, obeys commands, Oriented to person, place, time, situation, Appropriate for age. Cardiovascular: Patient's skin is warm and dry. Respiratory: Airway is patent Respiratory effort is even, unlabored, Respiratory pattern is regular, symmetrical. Derm: Rash noted that is itchy, papular, red, on back, right arm and left arm. Historical: - Allergies: 09:54 No Known Allergies; ap3 - Home Meds: 09:54 None [Active]; ap3 - PMHx: 09:54 neuropathy; Hypercholesterolemia; ap3 - Immunization history:: Client reports receiving the 2nd dose of the Covid vaccine, Flu vaccine is up to date. - Social history:: Smoking status: Patient reports the use of cigarette tobacco products, smokes one pack cigarettes per day. Patient uses alcohol, on a daily basis. a few shots a day. Screenin:55 Abuse screen: Denies threats or abuse. Nutritional screening: No deficits noted. ap3 Tuberculosis screening: No symptoms or risk factors identified. Fall Risk None identified. Vital Signs: 09:52 BP 112 / 86; Pulse 116; Resp 17; Temp 98.6; Pulse Ox 96% ; Weight 65.77 kg; Height 5 ap3 ft. 7 in. (170.18 cm); Pain 10/10; 10:51 BP 107 / 91; Pulse Ox 98% on R/A; ap3 11:41 BP 111 / 87; Pulse 104; Pulse Ox 99% on R/A; ap3 09:52 Body Mass Index 22.71 (65.77 kg, 170.18 cm) ap3 ED Course: 09:36 Patient arrived in ED. am2 09:37 Anastacio Guaman MD is Private Physician. am2 09:38 Can Worrell MD is Attending Physician. kdr 09:52 Yesika Flowers RN is Primary Nurse. ap3 09:54 Triage completed. ap3 09:56 Arm band placed on right wrist. ap3 09:56 Patient has correct armband on for positive identification. Placed in gown. Bed in low ap3 position. Call light in reach. Adult w/ patient. Pulse ox on. NIBP on. Door closed. Noise minimized. 10:12 Missed attempt(s): 20 gauge in right forearm. Bleeding controlled, band aid applied, dh3 catheter tip intact. 10:23 Inserted saline lock: 22 gauge in right antecubital area, using aseptic technique. ap3 11:57 Anastacio Guaman MD is Referral Physician. kdr 12:13 No provider procedures requiring assistance completed. IV discontinued, intact, ap3 bleeding controlled, No redness/swelling at site. Pressure dressing applied. Administered Medications: 10:24 Drug: NS 0.9% 500 ml Route: IV; Rate: bolus; Site: right antecubital; ap3 12:14 Follow up: IV Status: Completed infusion; IV Intake: 500ml ap3 10:24 Drug: SOLU-Medrol (methylPrednisoLONE) 125 mg Route: IVP; Site: right antecubital; ap3 11:40 Follow up: Response: No adverse reaction ap3 10:24 Drug: Benadryl (diphenhydrAMINE) 25 mg Route: IVP; Site: right antecubital; ap3 11:41 Follow up: Response: No adverse reaction ap3 Intake: 12:14 IV: 500ml; Total: 500ml. ap3 Outcome: 11:58 Discharge ordered by . kdr 12:13 Discharged to home ambulatory. ap3 12:13 Condition: good 12:13 Discharge instructions given to patient, Instructed on discharge instructions, follow up and referral plans. medication usage, Demonstrated understanding of instructions, follow-up care, medications, Prescriptions given X 3. 12:19 Patient left the ED. ap3 Signatures: Can Worrell MD MD kdr Moreno, Amanda am2 Herrera, Deanna 3 Yesika Flowers, RN RN ap3
--- NOTE | 2021-07-20 11:59 | EDPHYS ---
Physician Documentation [facility] Name: Mark Martin Age: 76 yrs Sex: Male : 1945 Arrival Date: 07/20/2021 Time: 09:36 Bed 5 Private MD: Anastacio Guaman E ED Physician Can Worrell HPI: 07/20 10:59 This 76 yrs old Male presents to ER via Ambulatory with complaints of Rash - worsening. kdr 10:59 The patient's rash thought to be caused by Patient was seen here about 3 weeks ago for kdr a rash on his left arm after a closure to paint. He was put on steroids and Benadryl at that time. Symptoms improved over the course of that treatment but had not totally resolved when his medications were consumed. Subsequent to that, the rash is progressed and now covers his torso and arms from the waist up. He initially had some involvement of his face but not currently. He denies any shortness of breath or difficulty breathing. He does not have any involvement below the waist. The rash is located on the body diffusely. The rash can be described as confluent, diffuse, erythematous, macular, patchy. Onset: The symptoms/episode began/occurred gradually, 3 week(s) ago. Associated signs and symptoms: Pertinent positives: burning sensation, itching, Pertinent negatives: difficulty breathing, fever, nausea. Severity of symptoms: At their worst the symptoms were moderate severe just prior to arrival, in the emergency department the symptoms are unchanged. The patient has experienced similar episodes in the past, chronically. Historical: - Allergies: 09:54 No Known Allergies; ap3 - Home Meds: 09:54 None [Active]; ap3 - PMHx: 09:54 neuropathy; Hypercholesterolemia; ap3 - Immunization history:: Client reports receiving the 2nd dose of the Covid vaccine, Flu vaccine is up to date. - Social history:: Smoking status: Patient reports the use of cigarette tobacco products, smokes one pack cigarettes per day. Patient uses alcohol, on a daily basis. a few shots a day. ROS: 10:59 Constitutional: Negative for fever, chills, and weight loss, Eyes: Negative for injury, kdr pain, redness, and discharge, ENT: Negative for injury, pain, and discharge, Neck: Negative for injury, pain, and swelling, Cardiovascular: Negative for chest pain, palpitations, and edema, Respiratory: Negative for shortness of breath, cough, wheezing, and pleuritic chest pain, Abdomen/GI: Negative for abdominal pain, nausea, vomiting, diarrhea, and constipation, Back: Negative for injury and pain, : Negative for injury, bleeding, discharge, and swelling, MS/Extremity: Negative for injury and deformity, Neuro: Negative for headache, weakness, numbness, tingling, and seizure activity. Psych: Negative for depression, anxiety, suicide ideation, homicidal ideation, and hallucinations, Allergy/Immunology: Negative for hives, rash, and allergies, Endocrine: Negative for neck swelling, polydipsia, polyuria, polyphagia, and marked weight changes, Hematologic/Lymphatic: Negative for swollen nodes, abnormal bleeding, and unusual bruising. 10:59 Skin: Positive for erythema, rash. Exam: 10:59 Constitutional: This is a well developed, well nourished patient who is awake, alert, kdr and in no acute distress. Head/Face: Normocephalic, atraumatic. Eyes: Pupils equal round and reactive to light, extra-ocular motions intact. Lids and lashes normal. Conjunctiva and sclera are non-icteric and not injected. Cornea within normal limits. Periorbital areas with no swelling, redness, or edema. Neck: Trachea midline, no thyromegaly or masses palpated, and no cervical lymphadenopathy. Supple, full range of motion without nuchal rigidity, or vertebral point tenderness. No Meningismus. Chest/axilla: Normal chest wall appearance and motion. Nontender with no deformity. No lesions are appreciated. Cardiovascular: Regular rate and rhythm with a normal S1 and S2. No gallops, murmurs, or rubs. Normal PMI, no JVD. No pulse deficits. Respiratory: Lungs have equal breath sounds bilaterally, clear to auscultation and percussion. No rales, rhonchi or wheezes noted. No increased work of breathing, no retractions or nasal flaring. Abdomen/GI: Soft, non-tender, with normal bowel sounds. No distension or tympany. No guarding or rebound. No evidence of tenderness throughout. Back: No spinal tenderness. No costovertebral tenderness. Full range of motion. MS/ Extremity: Pulses equal, no cyanosis. Neurovascular intact. Full, normal range of motion. Neuro: Awake and alert, GCS 15, oriented to person, place, time, and situation. Cranial nerves II-XII grossly intact. Motor strength 5/5 in all extremities. Sensory grossly intact. Cerebellar exam normal. Normal gait. Psych: Awake, alert, with orientation to person, place and time. Behavior, mood, and affect are within normal limits. 10:59 Skin: rash a moderate rash is noted, rash can be described as erythematous, excoriated, macular. Vital Signs: 09:52 BP 112 / 86; Pulse 116; Resp 17; Temp 98.6; Pulse Ox 96% ; Weight 65.77 kg; Height 5 ap3 ft. 7 in. (170.18 cm); Pain 10/10; 10:51 BP 107 / 91; Pulse Ox 98% on R/A; ap3 11:41 BP 111 / 87; Pulse 104; Pulse Ox 99% on R/A; ap3 09:52 Body Mass Index 22.71 (65.77 kg, 170.18 cm) ap3 MDM: 10:59 Data reviewed: vital signs, nurses notes, lab test result(s). Counseling: I had a kdr detailed discussion with the patient and/or guardian regarding: the historical points, exam findings, and any diagnostic results supporting the discharge/admit diagnosis, lab results, the need for outpatient follow up. 11:58 Patient medically screened. [facility] 07/20 09:58 Order name: CBC with Diff; Complete Time: 11:26 kdr 07/20 09:58 Order name: CMP; Complete Time: 11:26 kdr 07/20 09:58 Order name: CRP; Complete Time: 11:26 kdr 07/20 09:58 Order name: ESR; Complete Time: 11:26 kdr Administered Medications: 10:24 Drug: NS 0.9% 500 ml Route: IV; Rate: bolus; Site: right antecubital; ap3 12:14 Follow up: IV Status: Completed infusion; IV Intake: 500ml ap3 10:24 Drug: SOLU-Medrol (methylPrednisoLONE) 125 mg Route: IVP; Site: right antecubital; ap3 11:40 Follow up: Response: No adverse reaction ap3 10:24 Drug: Benadryl (diphenhydrAMINE) 25 mg Route: IVP; Site: right antecubital; ap3 11:41 Follow up: Response: No adverse reaction ap3 Disposition Summary: 07/20/21 11:58 Discharge Ordered Location: Home kdr Problem: an ongoing problem kdr Symptoms: have improved kdr Condition: Stable kdr Diagnosis - Rash and other nonspecific skin eruption kdr - Dermatitis, unspecified kdr Followup: kdr - With: Anastacio Guaman MD - When: 2 - 3 days - Reason: If symptoms return, Further diagnostic work-up, Recheck today's complaints, Continuance of care, Re-evaluation by your physician Discharge Instructions: - Discharge Summary Sheet kdr - Rash, Adult, [id number] kdr Forms: - Medication Reconciliation Form kdr - Thank You Letter kdr Prescriptions: - Benadryl 25 mg Oral Capsule - take 1 capsule by ORAL route every 6 hours As needed; 30 tablet; Refills: 0, kdr Product Selection Permitted - Medrol (Ricardo) 4 mg Oral Tablets, Dose Pack - take 1 tablet by ORAL route as directed - follow package instructions; 1 kdr packet; Refills: 0, Product Selection Permitted - Pepcid 20 mg Oral Tablet - take 1 tablet by ORAL route once daily; 20 tablet; Refills: 0, Product kdr Selection Permitted Signatures: Dispatcher [employer] Can Turk MD MD kdr Yesika Flowers RN RN ap3
[2021-07-20 16:07] VITALS: TEMP 98.6
[2021-07-20 16:10] VITALS: BP 111/87; O2SAT 99
== END 2021-07-20 12:19 | disposition home or self-care (01) ==
LOC: ER 09:36
DX: L30.9 Dermatitis, unspecified (principal); F17.210 Nicotine dependence, cigarettes, uncomplicated
CPT/HCPCS: 96361; 85025; 36415; 85652; 80053; 86140; 96375; 96374; 99284; J1200; J7040; J2930

== ENCOUNTER 2021-09-14 11:59 | Emergency (ER) | payer OTHER ==
--- OUTSIDE RECORDS SUMMARY | 2021-09-14 12:02 | XMS REPORT | Continuity of Care Document ---
:1945 Author Organization [facility] t Address [address] [place] [address] Dr. Nicolas [address] [place] [id number] Care Team Providers Name Role Phone Unavailable Unavailable Unavailable Payers Payer Name Policy Type Policy Number Effective Date Expiration Date S [facility] [id number] 2021 (MEDICARE 00:00:00 REPLACEMENT HMO) Problems This patient has no known problems. Allergies, Adverse Reactions, Alerts This patient has no known allergies or adverse reactions. Medications This patient has no known medications. Procedures This patient has no known procedures. Encounters Start End Encounter Admission Attending Care Care Encounter Source Date/Time Date/Time Type Type Clinicians Facility Department ID 2018-07-19 Inpatient U [facility] 7500 [facility] 05:29:00 2021-02-10 2021-02-10 Outpatient [facility] [id number] [facility] 08:01:00 08:01:00 10[facility] Results This patient has no known results.
--- NOTE | 2021-09-14 13:13 | RAD REPORT ---
EXAM DESCRIPTION: RAD - Wrist Right 3 View - 09/14/2021 1:00 pm CLINICAL HISTORY: Right wrist pain status post injury FINDINGS: Impaction comminuted fracture distal radius with moderate to marked displacement of fractu re fragments. Avulsion fracture ulnar styloid process. Osteoporosis. No dislocation seen
[2021-09-14] MEDS ORDERED: NA CHLORIDE 0.9% 500 ML ONE (14:08)
[2021-09-14] MEDS ORDERED: MIDAZOLAM HCL 2 MG/2 ML INJ ONE (14:08)
[2021-09-14] MEDS ORDERED: ETOMIDATE 20 MG/10 ML VIAL IV ONE (14:08)
--- NOTE | 2021-09-14 16:00 | RAD REPORT ---
EXAM DESCRIPTION: RAD - Wrist Right 3 View - 09/14/2021 3:43 pm CLINICAL HISTORY: Radial fracture. FINDINGS: A splint immobilizes the wrist. There is better alignment of the radial fracture fragments
--- NOTE | 2021-09-14 16:08 | ER ---
Nurse's Notes [facility] Name: Mark Martin Age: 76 yrs Sex: Male : 1945 Arrival Date: 09/14/2021 Time: 12:01 Bed 2 Private MD: Diagnosis: Right Distal Radial Fracture;Right Distal Ulnar Fracture Presentation: 09/14 12:01 Chief complaint: EMS states: FELL BEING CHASED BY A BEE, INJURED R WRIST AND R KNEE. bp Coronavirus screen: At this time, the client does not indicate any symptoms associated with coronavirus-19. Ebola Screen: No symptoms or risks identified at this time. Initial Sepsis Screen: Does the patient meet any 2 criteria? No. Patient's initial sepsis screen is negative. Does the patient have a suspected source of infection? No. Patient's initial sepsis screen is negative. Risk Assessment: Do you want to hurt yourself or someone else? Patient reports no desire to harm self or others. Onset of symptoms was September 14, 2021 at 10:00. Care prior to arrival: Medication(s) given: 13 MG KETAMINE IV initiated. 20 GA, in the left forearm. 12:01 Method Of Arrival: EMS: [facility] bp 12:01 Acuity: OZIEL 3 bp Triage Assessment: 12:03 General: Appears in no apparent distress. comfortable, Behavior is calm, cooperative, bp appropriate for age. Pain: Denies pain. EENT: No deficits noted. Neuro: No deficits noted. Cardiovascular: No deficits noted. Respiratory: No deficits noted. GI: No signs and/or symptoms were reported involving the gastrointestinal system. : No signs and/or symptoms were reported regarding the genitourinary system. Derm: No deficits noted. Musculoskeletal: Bony deformity noted of right wrist. Injury Description: Deformity sustained to right wrist. Historical: - Allergies: 12:03 No Known Drug Allergies; bp - Home Meds: 12:03 Unable to obtain [Active]; bp - PMHx: 12:03 Hypercholesterolemia; neuropathy; bp - Immunization history:: Adult Immunizations up to date. - Social history:: Smoking status: Patient denies any tobacco usage or history of. Screenin:04 Abuse screen: Denies threats or abuse. Denies injuries from another. Nutritional bp screening: No deficits noted. Tuberculosis screening: No symptoms or risk factors identified. Fall Risk None identified. Assessment: 12:04 General: SEE TRIAGE NOTE. bp 13:09 Reassessment: No changes from previously documented assessment. Patient and/or family bp updated on plan of care and expected duration. Pain level reassessed. 14:30 Reassessment: PT CONSENTED FOR CLOSED REDUCTION OF RIGHT WRIST WITH CONSCIOUS SEDATION. bp 15:00 Reassessment: PROCEDURE COMPLETE, XRAY PENDING. bp 16:23 Reassessment: PT D/C HOME VIA W/C WITH FAMILY, DX WITH DISTAL RADIUS/ULNA FX. bp Vital Signs: 12:01 BP 124 / 77; Pulse 98; Resp 16; Temp 98; Pulse Ox 96% ; Weight 65.77 kg; Height 5 ft. 7 bp in. (170.18 cm); 13:09 BP 112 / 78; Pulse 94; Resp 16; Pulse Ox 96% ; bp 14:00 BP 114 / 78; Pulse 96; Resp 19; Pulse Ox 94% ; bp 15:00 BP 132 / 90; Pulse 82; Resp 19; Pulse Ox 99% ; bp 16:00 BP 110 / 81; Pulse 92; Resp 21; Pulse Ox 94% ; bp 12:01 Body Mass Index 22.71 (65.77 kg, 170.18 cm) bp ED Course: 12:01 Patient arrived in ED. bp 12:03 Jeremiah Hutton PA is PHCP. [facility] 12:03 Buck Boyer MD is Attending Physician. [facility] 12:03 Triage completed. bp 12:03 Arm band placed on. bp 12:04 Patient has correct armband on for positive identification. Bed in low position. Call bp light in reach. Side rails up X2. 12:04 Maintain EMS IV. Dressing intact. Good blood return noted. Site clean \T\ dry. Gauge \T\ bp site: 20 GAUGE LEFT FA. 12:09 Thor Ramesh, RN is Primary Nurse. bp 13:02 Wrist Right 3 View XRAY In Process Unspecified. EDMS 14:30 Client placed on continuous cardiac and pulse oximetry monitoring. NIBP monitoring bp applied. 14:30 Assist provider with reduction of right wrist using manipulation, Set up for procedure. bp Performed by Jeremiah ROBERTO Immobilized with OCL splint, Patient tolerated well. 15:45 Wrist Right 3 View XRAY In Process Unspecified. EDMS 16:00 IV discontinued, intact, bleeding controlled, No redness/swelling at site. Pressure bp dressing applied. 16:07 Edward Xiong MD is Referral Physician. jr Administered Medications: 14:45 Drug: Etomidate 10 mg Route: IVP; Site: left forearm; bp 16:18 Follow up: Response: Pain is decreased bp 14:45 Drug: Versed (midazolam) 2 mg Route: IVP; Site: left forearm; bp 16:18 Follow up: Response: Pain is decreased bp Medication: 12:04 VIS not applicable for this client. bp Outcome: 16:00 Discharged to home via wheelchair, with family. bp 16:00 Condition: stable 16:00 Discharge instructions given to patient, family, Instructed on discharge instructions, follow up and referral plans. medication usage, Demonstrated understanding of instructions, follow-up care, medications, splint care, Prescriptions given X 1. 16:08 Discharge ordered by . jr 16:26 Patient left the ED. bp Signatures: Dispatcher [employer] EDMS Jeremiah Hutton PA PA jmm Peltier, Brian, RN RN bp
--- NOTE | 2021-09-14 16:08 | EDPHYS ---
Physician Documentation [facility] Name: Mark Martin Age: 76 yrs Sex: Male : 1945 Arrival Date: 09/14/2021 Time: 12: Bed 2 Private MD: ED Physician Buck Boyer HPI: 09/14 12:07 This 76 yrs old Male presents to ER via EMS with complaints of Wrist Injury. jmm 12:07 The patient or guardian reports injury, pain. Onset: The symptoms/episode jmm began/occurred acutely, just prior to arrival. Modifying factors: The symptoms are alleviated by nothing, the symptoms are aggravated by nothing. This is a 76 year old male with a history of hlp, that presents to the ED after falling from a standing position. Denies hitting his head. Patient states he lost balance while being attacked by insects. Denies numbness to the extremity. . Historical: - Allergies: 12:03 No Known Drug Allergies; bp - Home Meds: 12:03 Unable to obtain [Active]; bp - PMHx: 12:03 Hypercholesterolemia; neuropathy; bp - Immunization history:: Adult Immunizations up to date. - Social history:: Smoking status: Patient denies any tobacco usage or history of. ROS: 12:07 Constitutional: Negative for fever, chills, and weight loss, Cardiovascular: Negative jmm for chest pain, palpitations, and edema, Respiratory: Negative for shortness of breath, cough, wheezing, and pleuritic chest pain. 12:07 MS/extremity: Positive for injury or acute deformity, pain. 12:07 All other systems are negative. Exam: 12:07 Constitutional: This is a well developed, well nourished patient who is awake, alert, jmm and in no acute distress. Head/Face: atraumatic. Eyes: EOMI, no conjunctival erythema appreciated ENT: Moist Mucus Membranes Neck: Trachea midline, Supple Chest/axilla: Normal chest wall appearance and motion. Cardiovascular: Regular rate and rhythm. No edema appreciated Respiratory: Normal respirations, no respiratory distress appreciated Abdomen/GI: Non distended, soft Back: Normal ROM Skin: General appearance color normal 12:07 Musculoskeletal/extremity: swelling and deformity noted to the right wrist, full radial pulse appreciated, from appreciated. 12:07 Skin: Appearance: Color: normal in color. 12:07 Neuro: Orientation: is normal, Mentation: is normal, Memory: is normal. 12:07 Psych: Behavior/mood is pleasant, cooperative. Vital Signs: 12:01 BP 124 / 77; Pulse 98; Resp 16; Temp 98; Pulse Ox 96% ; Weight 65.77 kg; Height 5 ft. 7 bp in. (170.18 cm); 13:09 BP 112 / 78; Pulse 94; Resp 16; Pulse Ox 96% ; bp 14:00 BP 114 / 78; Pulse 96; Resp 19; Pulse Ox 94% ; bp 15:00 BP 132 / 90; Pulse 82; Resp 19; Pulse Ox 99% ; bp 16:00 BP 110 / 81; Pulse 92; Resp 21; Pulse Ox 94% ; bp 12:01 Body Mass Index 22.71 (65.77 kg, 170.18 cm) bp Procedures: 16:06 Reduction: of the right wrist, using traction, manipulation, Immobilized with jazmin norris tong. Patient tolerated well. Post reduction film - reveals improved alignment. MDM: 12:07 Patient medically screened. [facility] 15:31 Data reviewed: vital signs, nurses notes. Counseling: I had a detailed discussion with [facility] the patient and/or guardian regarding: the historical points, exam findings, and any diagnostic results supporting the discharge/admit diagnosis, lab results. 16:02 Counseling: I had a detailed discussion with the patient and/or guardian regarding: [facility] radiology results. 09/14 12:08 Order name: Wrist Right 3 View XRAY; Complete Time: 13:23 [facility] 09/14 14:51 Order name: Wrist Right 3 View XRAY; Complete Time: 16:02 [facility] 09/14 13:28 Order name: Sugar Tong Forearm Splint; Complete Time: 15:05 [facility] Administered Medications: 14:45 Drug: Etomidate 10 mg Route: IVP; Site: left forearm; bp 16:18 Follow up: Response: Pain is decreased bp 14:45 Drug: Versed (midazolam) 2 mg Route: IVP; Site: left forearm; bp 16:18 Follow up: Response: Pain is decreased bp Disposition Summary: 09/14/21 16:08 Discharge Ordered Location: Home [facility] Condition: Stable [facility] Diagnosis - Right Distal Radial Fracture [facility] - Right Distal Ulnar Fracture [facility] Followup: [facility] - With: Edward Xiong MD - When: 2 - 3 days - Reason: Recheck today's complaints, Continuance of care, Re-evaluation by your physician Discharge Instructions: - Discharge Summary Sheet jmm - Radial Fracture jmm - Wrist Fracture Treated With Immobilization [facility] Forms: - Medication Reconciliation Form [facility] - Thank You Letter jmm - Antibiotic Education jmm - Prescription Opioid Use jm Prescriptions: - Ultracet 37.5-325 mg Oral Tablet - take 1 tablet by ORAL route every 6 hours - for up to 5 days; do not exceed 8 jmm tablets per day.; 20 tablet; Refills: 0, Product Selection Permitted Signatures: Dispatcher [employer] Jeremiah Jimenes PA PA jmm Peltier, Brian, RN RN bp
[2021-09-14 16:34] VITALS: TEMP 98
[2021-09-14 16:40] VITALS: BP 110/81; O2SAT 94
== END 2021-09-14 16:26 | disposition home or self-care (01) ==
LOC: ER 11:59
PROC: 0PSHXZZ Reposition Right Radius, External Approach (ICD-10-PCS; principal; 2021-09-14)
PROC: 0PSKXZZ Reposition Right Ulna, External Approach (ICD-10-PCS; 2021-09-14)
DX: S52.501A Unspecified fracture of the lower end of right radius, initial encounter for closed fracture (principal); S52.601A Unspecified fracture of lower end of right ulna, initial encounter for closed fracture; W18.30XA Fall on same level, unspecified, initial encounter
CPT/HCPCS: 73110 ×2; 96375; 96374; 99284; 25605; J2250; J7040

== ENCOUNTER 2022-09-23 14:56 | Emergency (ER) | payer OTHER ==
--- OUTSIDE RECORDS SUMMARY | 2022-09-23 14:59 | XMS REPORT | Continuity of Care Document ---
:1945 Author Organization [facility] t Address [address] [place] [address] [address] [place] [address] Care Team Providers Name Role Phone Anastacio Guaman Attending Clinician Unavailable Tawnya Robison Attending Clinician Tawnya Robison Admitting Clinician Payers Payer Name Policy Type Policy Number Effective Date Expiration Date [facility] [place] [id number] 2021 2022 Common DUAL MCR WELLMED 00:00:00 00:00:00 [facility] HEALTH [id number] 2021 (MEDICARE 00:00:00 REPLACEMENT HMO) Problems Condition Condition Condition Status Onset Resolution Last Treating Co mments Source Name Details Category Date Date Treatment Clinician Date COMPOUND COMPOUND Diagnosis Active 2018-07-19 Memoria FX L FX L 4-05 04:42:00 l DISTAL DISTAL 00:00: [place] RADIUS RADIUS 00 Active 07/18/2018 [facility] FX OF FX OF Diagnosis Active 2019-05-08 Mem oria RADIUS RADIUS 4-05 09:33:00 l DISTAL DISTAL 00:00: [place] W/ULNA, W/ULNA, 00 LEFT OPEN LEFT OPEN Active 07/18/2018 [facility] UNSP FX UNSP FX Diagnosis Active 2019-05-08 Memoria THE LOWER THE LOWER 09:33:00 l END LEFT END LEFT Rivas n RADIUS, RADIUS, INIT INIT Active [facility] Allergies, Adverse Reactions, Alerts This patient has no known allergies or adverse reactions. Social History Social Habit Start Date Stop Date Quantity Comments Source Sex Assigned At Common Sp barbie - [facility] History of Current Smoker Common Spi rit - Tobacco Use [facility] Social History 2018-07-19 2018-07-19 Anitra guerrierann 11:54:10 11:54:10 Smoking Status Start Date Stop Date Source Current Smoker 2021-12-25 00:00:00 [facility] t - [facility] Medications Ordered Filled Start Stop Current Ordering Indication Dosage Frequency Signature Comments Components Source Medication Medication Date Date Medication? Clinician (SIG) Name Name gabapentin Yes 300 mg = 1 M emoria 300 MG Oral 4-08 cap, PO, l Capsule 15:46: Q8Hnow, # Zulema nn 00 90 cap, 0 Refill(s), Pharmacy: [email or web address] #[id number] Folic Acid 2018- Yes 1 mg = 1 Mem oria 1 MG Oral 4-08 tab, PO, l Tablet 15:46: Daily, # [place] 00 30 tab, 0 Refill(s), Pharmacy: [email or web address] #[id number] celecoxib 2018- Yes 200 mg = 1 Me moria 200 mg oral 4-08 cap, PO, l capsule 15:46: Q12H, # 28 Herm miko 00 cap, 0 Refill(s), Pharmacy: [email or web address] #[id number] Acetaminoph 2018- Yes 1,000 mg = Memoria en 500 MG 4-08 2 tab, PO, l Oral Tablet 15:46: Q6Hnow, Her sommer 00 PRN Pain Score 1-3, X 7 day, # 50 tab, 0 Refill(s), Pharmacy: [email or web address] #[id number] tramadol 2018- Yes 50 mg = 1 Sandro carlos hydrochlori 4-08 tab, PO, l de 50 MG 15:46: Q6H, PRN Zulema nn Oral Tablet 00 Pain Score 4-6, X 5 day, # 20 tab, 0 Refill(s) thiamine 2018-0 Yes 100 mg = 1 Mem oria 100 mg oral 4-08 tab, PO, l tablet 15:46: Daily, X [place] 00 14 day, # 14 tab, 0 Refill(s), Pharmacy: [email or web address] #[id number] Multiple 2019-0 Yes 1 tab, PO, Mem oria Vitamins 4-08 Daily, # l oral tablet 15:46: 30 tab, 0 H Refill(s), Pharmacy: [facility] #[id number] multivitami No Notes: Sandro carlos n 4-08 (Same l 14:00: as:Thera) WASTE: F/P - Black; E - Municipal Trash Bin Take with food. Folic Acid No Notes: Memor ia 4-08 (Same as: l 14:00: Folvite) Thiamine No Notes: Memoria 4-08 (Same As: l 14:00: Vitamin B1) metoprolol No Notes: Memor ia tartrate 4-08 (Same as: l 02:00: Lopressor) sennosides, No Notes: Sandro carlos ALF 4-08 (Same as: l 02:00: Senokot) celecoxib No Notes: Memori a 4-08 NSAID. l 02:00: Please check indication . Not for seizure. (Same As: CeleBREX) Clonidine No Notes: Memori a 4-08 (Same As: l 00:30: Catapres) Lorazepam No Notes: Memori a 4-08 (Same as: l 00:30: Ativan) Docusate No Notes: Memoria 4-07 (Same as: l 22:00: Colace) (Do Not Crush) Acetaminoph No Notes: Max Memoria en 407 acetaminop l 17:00: hen 4000 mg/day (4 gm/day). (Same as: Tylenol Extra Strength) gabapentin No Notes: Memor ia 4-07 (Same as: l 17:00: Neurontin) Tramadol No Notes: Not Mem oria 4-07 to exceed l 16:32: 400mg/day. (Same As: Ultram) tizanidine No Notes: Memor ia 4-07 (Same As: l 16:32: Zanaflex) Ancef 2019-0 No 2 gm, Memoria 4-07 Route: l 08:00: IVPB, [place] 00 ABXQ8H, Dosing Weight 68.182, kg, Start date: 07/20/18 3:00:00 CDT, Duration: 1 day, Stop date: 07/20/18 19:00:00 CDT, ABX Indication : Surgical Prophylaxi s ondansetron 2019-0 No Route: IV, Memoria (ANES) 07-20 Drug form: l 07:47: INJ, ONCE, Stop date: 07/20/18 2:47:00 CDT dexmedetomi 2019- No Route: IV, Memoria dine (ANES) 07-20 Drug form: l 05:47: INJ, ONCE, Stop date: 07/20/18 0:47:00 CDT niCARdipine 2018- No Route: IV, Memoria (ANES) 07-20 Drug form: l 05:47: INJ, ONCE, Stop date: 07/20/18 0:47:00 CDT esmolol 2019-0 No Route: IV, Sandro carlos (ANES) 07-20 Drug form: l 05:32: INJ, ONCE, Stop date: 07/20/18 0:32:00 CDT fentaNYL 2019-0 No Route: IV, Mem oria (ANES) 07-20 Drug form: l 05:27: INJ, ONCE, Stop date: 07/20/18 0:27:00 CDT ceFAZolin 2018-0 No Route: IV, Me moria (ANES) 07-20 Drug form: l 05:27: INJ, ONCE, Stop date: 07/20/18 0:27:00 CDT rocuronium 2018-0 No Route: IV, M emoria (ANES) 07-20 Drug form: l 05:27: INJ, ONCE, Stop date: 07/20/18 0:27:00 CDT propofol 2019-0 No Route: IV, Mem oria (ANES) 07-20 Drug form: l 05:27: INJ, ONCE, Stop date: 07/20/18 0:27:00 CDT lidocaine 2019-0 No Route: IV, Me moria (ANES) 07-20 Drug form: l 05:27: INJ, ONCE, Stop date: 07/20/18 0:27:00 CDT phenylephri No Route: IV, Memoria ne (ANES) 07-20 Drug form: l 05:22: INJ, ONCE, Stop date: 07/20/18 0:22:00 CDT Ondansetron 2018-0 No 4 mg, Memor ia 07-20 Route: l 04:59: IVP, ONCE, Dosing Weight 68.182, kg, PRN Nausea & Vomiting, Start date: 07/19/18 23:59:00 CDT Hydromorpho 2018-0 No 0.5 mg, Mem oria ne 07-20 Route: l 04:59: IVP, Q5Min, Dosing Weight 68.182, kg, PRN Pain Score 7-10, Start date: 07/19/18 23:59:00 CDT, Duration: 4 doses or times, Stop date: Limited # of times Flumazenil No 0.2 mg, Sandro carlos 07-20 Route: l 04:59: IVP, PRN, Dosing Weight 68.182, kg, PRN Benzodiaze pine Reversal, Initial dose, Start date: 07/19/18 23:59:00 CDT, Duration: 30 day, Stop date: 08/18/18 23:58:00 CDT Naloxone 0 No 0.4 mg, Memori a 07-20 Route: l 04:59: IVP, [place] 00 Q2MIN, Dosing Weight 68.182, kg, PRN Narcotic Reversal, Start date: 07/19/18 23:59:00 CDT, Duration: 8 doses or times, Stop date: Limited # of times Lactated No Route: IV, Mem oria Ringers 07-20 Total l Injection 04:34: Volume: Zulema nn IV (ANES) 00 1,000, 1000 mL Start date: 07/19/18 23:34:00 CDT, Stop date: 07/20/18 0:34:00 CDT sennosides, 2019-0 No Notes: Sandro carlos ALF 07-20 (Same as: l 02:00: Senokot) Ancef No Notes: Memoria 4-06 (Same as l 17:00: Ancef) [place] 00 Docusate No Notes: Memoria 4-06 (Same as: l 14:00: Colace) [place] (Do Not Crush) Fentanyl No 50 kg Memoria 4-06 l 11:11: [place] 00 gabapentin No Notes: Memor ia -06 (Same as: l 11:00: Neurontin) [place] 00 Acetaminoph No Notes: Max Memoria en 07-19 acetaminop l 11:00: hen 4000 [place] 00 mg/day (4 gm/day). (Same as: Tylenol Extra Strength) Melatonin No Notes: Memori a 07-19 (Same as: l 10:52: Melatonin) Morphine No Notes: Memoria 06 (Same l 10:52: as:MORPhin [place] e Sulfate) Oxycodone No Notes: Memori a Hydrochlori 07-19 (Same as: l de 5 MG 10:52: Roxicodone Herm miko Oral Tablet ) Lovenox No Notes: Memoria 06 (Same as: l 10:51: Lovenox) Dextrose No 12.5 gm, Memor ia 50% Syringe 07-19 25 mL, l 10:50: Route: [place] 00 IVP, Drug Form: INJ, kg, PRN, PRN Blood Glucose Results, Start date: 07/19/18 5:50:00 CDT, Duration: 30 day, Stop date: 08/18/18 5:49:00 CDT Glucagon No 1 mg, Memoria 07-19 Route: IM, l 10:50: Drug form: PDR/INJ, PRN, kg, PRN Blood Glucose Results, Start date: 07/19/18 5:50:00 CDT, Duration: 30 day, Stop date: 08/18/18 5:49:00 CDT Ondansetron No Notes: Sandro carlos 07-19 (Same as: l 10:50: Zofran) MEDICATION WASTE Product Size: 4 mg Product Wasted: ___ mg Morphine 2019-0 No 4 mg, Memoria 4- Route: l 09:25: IVP, ONCE, [place] 00 kg, Priority: STAT, Start date: 07/19/18 4:25:00 CDT, Stop date: 07/19/18 4:25:00 CDT Ondansetron 2019-0 No 4 mg, Memor ia 4- Route: l 09:25: IVP, Drug [place] 00 form: INJ, ONCE, kg, Priority: STAT, Start date: 07/19/18 4:25:00 CDT, Stop date: 07/19/18 4:25:00 CDT atorvastati atorvastati No atorvastat n n in atorvastati atorvastati No atorvastat n n in Immunizations Ordered Immunization Filled Immunization Date Status Commen ts Source Name Name pneumococcal 2018-07-21 Completed [facility] 13-valent vaccine 15:04:00 [place] Vital Signs Vital Name Observation Time Observation Value Comments Source height 2021-12-25 09:30:00 67 [in_i] [facility] weight 2021-12-25 09:30:00 145 [lb_av] [facility] temperature 2021-12-25 09:30:00 97.5 [degF] [facility] bmi 2021-12-25 09:30:00 22.71 kg/m2 [facility] blood pressure 2021-12-25 09:30:00 126 mm[Hg] [facility] - systolic [facility] blood pressure 2021-12-25 09:30:00 82 mm[Hg] [facility] - diastolic [facility] height 2021-11-23 10:00:00 67 [in_i] [facility] weight 2021-11-23 10:00:00 145 [lb_av] [facility] temperature 2021-11-23 10:00:00 97.1 [degF] [facility] bmi 2021-11-23 10:00:00 22.71 kg/m2 [facility] - [facility] blood pressure 2021-11-23 10:00:00 128 mm[Hg] [facility] - systolic [facility] blood pressure 2021-11-23 10:00:00 76 mm[Hg] [facility] - diastolic [facility] Heart Rate 2018-07-21 16:09:00 [facility] [place] Respitory Rate 2018-07-21 16:09:00 Memori al [place] Systolic (mm Hg) 2018-07-21 16:09:00 Sandro rial [place] Diastolic (mm Hg) 2018-07-21 16:09:00 Mem orial [place] Temperature Oral (F) 2018-07-21 16:09:00 98.3 F [facility] [place] Systolic (mm Hg) 2018-07-21 12:11:00 Sandro rial [place] Diastolic (mm Hg) 2018-07-21 12:11:00 Mem orial [place] Respitory Rate 2018-07-21 12:11:00 Memori al [place] Heart Rate 2018-07-21 12:11:00 [facility] [place] Temperature Oral (F) 2018-07-21 12:11:00 98.5 F [facility] [place] Respitory Rate 2018-07-21 07:25:00 Memori al [place] Temperature Oral (F) 2018-07-21 07:25:00 98.9 F [facility] [place] Systolic (mm Hg) 2018-07-21 07:25:00 Sandro rial [place] Diastolic (mm Hg) 2018-07-21 07:25:00 Mem orial [place] Heart Rate 2018-07-21 07:25:00 [facility] [place] Height 2018-07-19 11:44:00 170.18 cm [facility] [place] BMI Calculated 2018-07-19 11:44:00 Memori al [place] Weight 2018-07-19 11:44:00 [facility] [place] Procedures This patient has no known procedures. Encounters Start End Encounter Admission Attending Care Care Encounter Source Date/Time Date/Time Type Type Clinicians Facility Department ID 2022-05-31 Outpatient Guaman, STLML[facility] [id number] Common 16:14:03 Anastacio [address] [facility] 2022-01-02 Outpatient Guaman, STLMLC [facility] [id number] Common 10:00:03 Anastacio [facility] 2021-11-28 Outpatient Guaman, STLMLC STLMLC [id number] Common 14:49:02 Anastacio [address] [facility] 2021-11-23 Outpatient Guaman, STLMLC STLMLC [id number] Common 09:58:04 Anastacio [facility] 2018-07-19 Inpatient U [facility] 7500 [facility] 05:29:00 2022-04-27 2022-04-27 Outpatient SFA SFA [id number] Demarcus 14:26:55 14:26:55 0113 F Ethan 2021-12-25 2021-12-25 OFFICE STLMLC STLMLC [id number] Co mmon 00:00:00 00:00:00 [facility] ESTAB PT - CHI LEVEL 4 [facility] 2021-11-23 2021-11-23 OFFICE STLMLC STLMLC [id number] Co mmon 00:00:00 00:00:00 [facility] ESTAB PT - CHI LEVEL 4 [facility] 2021-02-10 2021-02-10 Outpatient DMG DMG [id number] [facility] 08:01:00 08:01:00 [facility] 2018-07-19 2018-07-21 Inpatient [facility] [id number] Memoria 08:55:00 17:30:[address] 2018-07-19 2018-07-21 Outpatient Robison Tawnya [facility] [id number] 03:55:00 12:30:00 Adan 00 Results Test Description Test Time Test Comments Results Result Comments Source VITAMIN D, 25 [place] 2022-04-30 02:00:25 Test Item Value Reference Range Interpretation Comme nts VITAMIN D, 25 OH (test 14 NG/ML SEE BELOW L E FFECTIVE 04/23/2022, PLEASE NOTE code = 4958) NEW METHODOLOGY IS ELECTROCHEMILUM INESCENCE BINDING ASSAY. NOTE: 25-HYDROX YVITAMIN D ASSAY INCLUDES 25-HYDROXYVITAM IN D2 AND D3. INTERPRETIVE RA NGES PEDIATRIC (<17 YEARS) . . . . . . . . . . . NG/ML 20-100ADULT: IN SUFFICIENT . . . . . . . . . . . . . . N G/ML <20 SUBOPTIMAL . . . . . . . . . . . . . . . NG/ML 20-29 OPTIMAL . . . . . . . . . . . . . . . . . NG/ML 30-100 TSH, THIRD [id number] 01:22:04 Test Item Value Reference Range Interpretation Comments TSH, THIRD GENERATION (test code 3.100 UIU/ML 0.400-4.100 = 2820) COMPREHENSIVE METABOLIC [id number] 23:54:33 Test Item Value Reference Range Interpretation Comments GLUCOSE (test code = 113 MG/DL 70-99 H 2216) BUN (test code = 10 MG/DL 8-23 2207) CREATININE (test 0.86 MG/DL 0.80-1.40 code = 221) eGFR (2020 CKD-EPI) 90 ML/MIN/1.73 >60 (test code = 03244) CALC BUN/CREAT (test 12 RATIO 6-28 code = 2235) SODIUM (test code = 140 MEQ/L 356-500 7776) POTASSIUM (test code 4.2 MEQ/L 3.5-5.4 = 2227) CHLORIDE (test code 100 MEQ/L 95-107 = 2214) CARBON DIOXIDE (test 22 MEQ/L 19-31 code = 2206) CALCIUM (test code = 9.5 MG/DL 8.5-10.5 2208) PROTEIN, TOTAL (test 7.5 G/DL 6.1-8.3 code = 2229) ALBUMIN (test code = 4.5 G/DL 3.5-5.2 2200) CALC GLOBULIN (test 3.0 G/DL 1.9-3.7 code = 2240) CALC A/G RATIO (test 1.5 RATIO 1.0-2.6 code = 2234) BILIRUBIN, TOTAL 0.5 MG/DL See_Comment [Automated message] (test code = 2207) The syste m which generated this result transmit sia reference range : <=1.2. The refe rence range was not u sed to interpret th is result as normal/abnormal . ALKALINE PHOSPHATASE 103 U/L 40-125 (test code = 2204) AST (test code = 51 U/L 9-50 H 2217) ALT (test code = 40 U/L 5-50 2218) LIPID [id number] 23:54:33 Test Item Value Reference Range Interpretation Comments CHOLESTEROL (test 161 MG/DL <200 code = 2210) TRIGLYCERIDES (test 179 MG/DL <150 H code = 2232) HDL CHOLESTEROL (test 49 MG/DL >39 code = 2220) CALC LDL CHOL (test 84 MG/DL <100 NOTE: C ALCULATED LDL code = 2237) IS BASED ON MARGA-STEINBERG METHOD WHICHINCLUDES ADJUSTABLE TRIGLYCERIDE:VL DL CHOLESTEROL RAT IO.THIS FACTOR VARIES B Y MEASURED TRIGLY CERIDE AND NON-HDLCHOL ESTEROL CONCENTRATIONS WITH INCREASED CALCU LATED LDL SEENIN HIGH ER TRIGLYCERIDE OR LOWER NON-HDL SPECIME NS. FOR MOREINFORMATION , SEE CLIENT ANNOUNCE MENT AT [email or web address] RATIO LDL/HDL 1.71 RATIO <3.55 UNLESS O THERWISE (test code = 2238) INDICATED , ALL TESTING PERFORMED [facility]. [address] [place] [address] KEYUR DIRECTOR: ELENA GERMAIN M.D. CLIA NUMBER [id number] CAP ACCREDITATION N O. [id number] HEMOGLOBIN [id number] 06:54:51 Test Item Value Reference Range Interpretation Comments HEMOGLOBIN A1c (test code = 81785) 5.2 % 4.2-5.6 CBC W/AUTO DIFF WITH [id number] 05:41:52 Test Item Value Reference Range Interpretation Comments WBC (test code = 6.4 K/UL 3.5-11.0 1001) RBC (test code = 4.27 M/UL 4.50-6.10 L 1002) HEMOGLOBIN (test code 15.9 G/DL 13.5-17.0 = 1003) HEMATOCRIT (test code 45.1 % 40.0-51.0 = 1004) MCV (test code = 105.6 fL 80.0-99.0 H 1005) MCH (test code = 37.2 PG 25.0-33.0 H 1006) MCHC (test code = 35.3 G/DL 31.0-36.0 1007) RDW (test code = 12.1 % 11.5-15.0 1038) NEUTROPHILS (test 58.9 % code = 1008) LYMPHOCYTES (test 25.1 % code = 1010) MONOCYTES (test code 10.5 % = 1011) EOSINOPHILS (test 3.6 % code = 1012) BASOPHILS (test code 1.4 % = 1013) IMMATURE GRANULOCYTES 0.5 % (test code = 1036) NUCLEATED RBCS (test 0.0 /100 WBC'S See_Comment [Aut omated code = 1065) message] The sy stem which generated this result transmitted reference range : 0.0. The refere nce range was not u sed to interpret th is result as normal/abnormal . PLATELET COUNT (test 132 K/UL 130-400 code = 1015) ABSOLUTE NEUTROPHILS 3.75 K/UL 1.50-7.50 (test code = 1066) ABSOLUTE LYMPHOCYTES 1.60 K/UL 1.00-4.00 (test code = 1067) ABSOLUTE MONOCYTES 0.67 K/UL 0.20-1.00 (test code = 1068) ABSOLUTE EOSINOPHILS 0.23 K/UL 0.00-0.50 (test code = 1040) ABSOLUTE BASOPHILS 0.09 K/UL 0.00-0.20 (test code = 1069) ABS IMMATURE 0.03 K/UL 0.00-0.10 GRANULOCYTES (test code = 1020) ABS NUCLEATED RBCS 0.00 K/UL 0.00-0.11 (test code = 27614) BLOOD BANK [id number] 10:08:00 Test Item Value Reference Range Interpretation Comments ABO/Rh (test code = ABO/Rh) O [facility] [id number] 10:08:00 Test Item Value Reference Range Interpretation Comments Antibody Scrn (test Negative (07/19/18 5:08 code = Antibody Scrn) AM) [facility] Hos[id number] 09:44:00 Test Item Value Reference Range Interpretation Comments AGAP (test code = AGAP) 18.2 10.0-20.0 [facility] Hos[id number] 09:44:00 Test Item Value Reference Range Interpretation Comments Glucose Lvl (test code = Glucose Lvl) 108 70-99 [facility] Ho[id number] 09:44:00 Test Item Value Reference Range Interpretation Comments BUN (test code = BUN) 5 7-22 [facility] Hos[id number] 09:44:00 Test Item Value Reference Range Interpretation Comments Creatinine Lvl (test code = Creatinine 0.80 0.50-1.40 Lvl) [facility] Ho[id number] 09:44:00 Test Item Value Reference Range Interpretation Comments Sodium Lvl (test code = Sodium Lvl) 141 135-145 [facility] Hospital[id number] 09:44:00 Test Item Value Reference Range Interpretation Comments Chloride Lvl (test code = Chloride Lvl) 104 95-109 [facility] Hospital[id number] 09:44:00 Test Item Value Reference Range Interpretation Comments CO2 (test code = CO2) 23 24-32 [facility] Hos[id number] 09:44:00 Test Item Value Reference Range Interpretation Comments Calcium Lvl (test code = Calcium Lvl) 8.1 8.5-10.5 [facility] Ho[id number] 09:44:00 Test Item Value Reference Range Interpretation Comments Potassium Lvl (test code = Potassium 4.2 3.5-5.1 Lvl) [facility] Hos[id number] 09:44:00 Test Item Value Reference Range Interpretation Comments eGFR (test code = eGFR) 89 [facility] [id number] 09:44:00 Test Item Value Reference Range Interpretation Comments Monocytes # (test code 0.6 See_Comment [Aut omated message] The = Monocytes #) system which generated this result tra nsmitted reference range : <=0.8. The reference r nelson was not used to int erpret this result as normal/abnormal . [facility] SystemVfaxbprZTRJJBWLNQ1310-06-16 09:44:00 Test Item Value Reference Range Interpretation Comments Basophils # (test code 0.1 See_Comment [Aut omated message] The = Basophils #) system which generated this result tra nsmitted reference range : <=0.2. The reference r nelson was not used to int erpret this result as normal/abnormal . [facility] Syst[id number] 09:44:00 Test Item Value Reference Range Interpretation Comments Macrocyte (test code = 2+ *ABN*(07/19/18 4:44 Macrocyte) AM) [facility] [id number] 09:44:00 Test Item Value Reference Range Interpretation Comments Eosinophils (test code = 0.3 See_Comment [A utomated message] The Eosinophils) system which ge nerated this result tra nsmitted reference range : <=4.0. The reference r nelson was not used to int erpret this result as normal/abnormal . [facility] [id number] 09:44:00 Test Item Value Reference Range Interpretation Comments Segs (test code = Segs) 76.3 45.0-75.0 [facility] [id number] 09:44:00 Test Item Value Reference Range Interpretation Comments Basophils (test code = 0.6 See_Comment [Aut omated message] The Basophils) system which ge nerated this result tra nsmitted reference range : <=1.0. The reference r nelson was not used to int erpret this result as normal/abnormal . [facility] S[id number] 09:44:00 Test Item Value Reference Range Interpretation Comments Lymphocytes # (test code = Lymphocytes 1.4 1.0-5.5 #) [facility] [id number] 09:44:00 Test Item Value Reference Range Interpretation Comments Neutrophils # (test code = Neutrophils 6.6 1.5-8.1 #) [facility] S[id number] 09:44:00 Test Item Value Reference Range Interpretation Comments Lymphocytes (test code = Lymphocytes) 16.1 20.0-40.0 [facility] [id number] 09:44:00 Test Item Value Reference Range Interpretation Comments Monocytes (test code = Monocytes) 6.7 2.0-12.0 [facility] [id number] 09:44:00 Test Item Value Reference Range Interpretation Comments PTT (test code = PTT) 28.0 s 22.9-35.8 [facility] S[id number] 09:44:00 Test Item Value Reference Range Interpretation Comments INR (test code = INR) 1.06 1 0.85-1.17 [facility] [id number] 09:44:00 Test Item Value Reference Range Interpretation Comments PT (test code = PT) 13.6 s 12.0-14.7 [facility] SystemRtmprwcAAAQAIOKQW8524-02-35 09:44:00 Test Item Value Reference Range Interpretation Comments Platelet (test code = Platelet) 169 535-450 [facility] SystemWnlwybbDTJRJEBOLR6546-28-23 09:44:00 Test Item Value Reference Range Interpretation Comments MPV (test code = MPV) 8.8 7.4-10.4 [facility] Syst[id number] 09:44:00 Test Item Value Reference Range Interpretation Comments RDW (test code = RDW) 13.7 11.5-14.5 [facility] [id number] 09:44:00 Test Item Value Reference Range Interpretation Comments RBC (test code = RBC) 4.23 4.70-6.10 [facility] [id number] 09:44:00 Test Item Value Reference Range Interpretation Comments WBC (test code = WBC) 8.7 3.7-10.4 [facility] [id number] 09:44:00 Test Item Value Reference Range Interpretation Comments MCV (test code = MCV) 108.9 80.0-94.0 [facility] SystemOjugzuyIMORTJAUDT5597-16-50 09:44:00 Test Item Value Reference Range Interpretation Comments Hct (test code = Hct) 46.0 42.0-54.0 [facility] [id number] 09:44:00 Test Item Value Reference Range Interpretation Comments MCHC (test code = MCHC) 34.6 32.0-36.0 [facility] S[id number] 09:44:00 Test Item Value Reference Range Interpretation Comments MCH (test code = MCH) 37.7 pg 27.0-31.0 [facility] SystemWrxogmrDNVGKDJGPH8869-85-54 09:44:00 Test Item Value Reference Range Interpretation Comments Hgb (test code = Hgb) 15.9 14.0-18.0 [facility]
--- NOTE | 2022-09-23 15:39 | RAD REPORT ---
EXAM DESCRIPTION: RAD - Ankle Right 3 View - 09/23/2022 3:22 pm CLINICAL HISTORY: Right ankle pain FINDINGS: Bones are osteoporotic No fracture or dislocation is seen.
--- NOTE | 2022-09-23 15:40 | RAD REPORT ---
EXAM DESCRIPTION: RAD - Ankle Left 3 View -09/23/2022 3:22 pm CLINICAL HISTORY: Left ankle pain FINDINGS: Soft tissue swelling Transverse lucency medial malleolus probably a prominent trabecula. Nondisplaced fracture can also monroy ve this appearance. Clinical correlation needed see if patient has point tenderness in this region to suggest this. No dislocation
--- NOTE | 2022-09-23 16:49 | RAD REPORT ---
EXAM DESCRIPTION: USExtremity Venous Uni Ltd09/23/2022 4:06 pm CLINICAL HISTORY: left leg pain COMPARISON: None FINDINGS: Left common femoral, superficial femoral, greater saphenous, popliteal and posterior tibi al veins are compressible and demonstrate augmentation. Doppler demonstrates good flow. Grayscale, color and spectral analysis performed on all vessels IMPRESSION: No evidence of deep venous thrombosis involving the left lower extremity.
--- NOTE | 2022-09-23 16:59 | ER ---
Nurse's Notes [facility] Name: Mark Martin Age: 77 yrs Sex: Male : 1945 Arrival Date: 09/23/2022 Time: 14:56 Bed 14 Private MD: Diagnosis: Nondisplaced left ankle fracture;Fall on same level from slipping, tripping and stumbling without subsequent striking against object Presentation: 09/23 14:59 Chief complaint: EMS states: MECHANICAL FALL AT HOME x2 DAYS AGO. Coronavirus screen: bp At this time, the client does not indicate any symptoms associated with coronavirus-19. Ebola Screen: No symptoms or risks identified at this time. Initial Sepsis Screen: Does the patient meet any 2 criteria? No. Patient's initial sepsis screen is negative. Does the patient have a suspected source of infection? No. Patient's initial sepsis screen is negative. Risk Assessment: Do you want to hurt yourself or someone else? Patient reports no desire to harm self or others. Onset of symptoms was September 23, 2022 at 14:00. Care prior to arrival: Glucose check: 100. 14:59 Method Of Arrival: EMS: [facility] bp 14:59 Acuity: OZIEL 3 bp Triage Assessment: 15:00 General: Appears in no apparent distress. Behavior is calm, cooperative, appropriate bp for age. Pain: Complains of pain in right leg and left leg. EENT: No deficits noted. Neuro: No deficits noted. Cardiovascular: No deficits noted. Respiratory: No deficits noted. GI: No signs and/or symptoms were reported involving the gastrointestinal system. : No signs and/or symptoms were reported regarding the genitourinary system. Derm: No deficits noted. Musculoskeletal: No deficits noted. Historical: - Allergies: 15:00 No Known Drug Allergies; bp - PMHx: 15:00 Hypercholesterolemia; neuropathy; bp - Immunization history:: Adult Immunizations up to date. - Social history:: Smoking status: unknown. Screenin:01 [facility] ED Fall Risk Assessment (Adult) History of falling in the last 3 months, bp including since admission No falls in past 3 months (0 pts). Abuse screen: Denies threats or abuse. Denies injuries from another. Nutritional screening: No deficits noted. Tuberculosis screening: No symptoms or risk factors identified. Assessment: 15:01 General: SEE TRIAGE NOTE. bp 17:00 Reassessment: PT DC HOME. bp Vital Signs: 14:59 BP 115 / 69; Pulse 112; Resp 18; Temp 98; Pulse Ox 95% ; bp 16:00 BP 98 / 76; Pulse 94; Resp 16; Pulse Ox 96% ; bp 17:00 BP 106 / 88; Pulse 91; Resp 16; Pulse Ox 96% ; bp ED Course: 14:59 Patient arrived in ED. bp 15:00 Triage completed. bp 15:00 Arm band placed on. bp 15:01 Patient has correct armband on for positive identification. Bed in low position. Call bp light in reach. Side rails up X2. 15:02 Thor Ramesh, RN is Primary Nurse. bp 15:02 No Anguiano FNP-C is PHCP. kb 15:02 Otoniel Gomez MD is Attending Physician. kb 15:24 Ankle Right 3 View XRAY In Process Unspecified. EDMS 15:24 Ankle Left 3 View XRAY In Process Unspecified. EDMS 15:35 US Extremity Venous Unilateral Ltd Sent. bp 16:07 US Extremity Venous Unilateral Ltd In Process Unspecified. EDMS 17:00 No provider procedures requiring assistance completed. Patient did not have IV access bp during this emergency room visit. Ortho shoe applied to left foot. Administered Medications: 17:09 Drug: traMADol PO 50 mg Route: PO; bp 17:22 Follow up: Response: No adverse reaction bp Medication: 15:01 VIS not applicable for this client. bp Outcome: 16:58 Discharge ordered by MD. kb 17:00 Discharged to home via wheelchair, with family. bp 17:00 Condition: stable 17:00 Discharge instructions given to patient, Instructed on discharge instructions, follow up and referral plans. Demonstrated understanding of instructions, follow-up care. 17:22 Patient left the ED. bp Signatures: Dispatcher [employer] EDMS No Anguiano FNP-C OCCUPATIONAL THERAPY AIDE-Willyb Thor Ramesh, RN RN bp
--- NOTE | 2022-09-23 16:59 | EDPHYS ---
Physician Documentation [facility] Name: Mark Martin Age: 77 yrs Sex: Male : 1945 Arrival Date: 09/23/2022 Time: 14:56 Bed 14 Private MD: ED Physician Otoniel Gomez HPI: 09/23 16:59 This 77 yrs old Male presents to ER via EMS with complaints of Leg Pain. kb 16:59 The patient has not experienced similar symptoms in the past. The patient has not kb recently seen a physician. Patient reports his right knee gave out on Saturday causing him to fall. He reports pain to bilateral ankles from fall but was able to bear weight and get around. States he started having pain to entire left leg and was concerned for a blood clot so decided to come in today.. Historical: - Allergies: 15:00 No Known Drug Allergies; bp - PMHx: 15:00 Hypercholesterolemia; neuropathy; bp - Immunization history:: Adult Immunizations up to date. - Social history:: Smoking status: unknown. ROS: 17:00 Constitutional: Negative for fever, chills, and weight loss. kb 17:00 MS/extremity: Positive for pain, of the left leg, left ankle, right ankle. 17:00 All other systems are negative. Exam: 17:01 Constitutional: This is a well developed, well nourished patient who is awake, alert, kb and in no acute distress. Head/Face: Normocephalic, atraumatic. ENT: Moist Mucous membranes Cardiovascular: Regular rate and rhythm with a normal S1 and S2. No gallops, murmurs, or rubs. No pulse deficits. Respiratory: Respirations even and unlabored. No increased work of breathing. Talking in full sentences Skin: Warm, dry with normal turgor. Normal color. Neuro: Awake and alert, GCS 15, oriented to person, place, time, and situation. Moves all extremities. Normal gait. 17:01 Musculoskeletal/extremity: Extremities: grossly normal except: noted in the left leg, bilateral ankles: pain, ROM: intact in all extremities, Circulation is intact in all extremities. Sensation intact. Weight bearing: can bear weight with assistance only, uses walker. Vital Signs: 14:59 BP 115 / 69; Pulse 112; Resp 18; Temp 98; Pulse Ox 95% ; bp 16:00 BP 98 / 76; Pulse 94; Resp 16; Pulse Ox 96% ; bp 17:00 BP 106 / 88; Pulse 91; Resp 16; Pulse Ox 96% ; bp MDM: 15:02 Patient medically screened. kb 17:01 Differential diagnosis: dislocation, closed fracture, contusion, sprain, strain. Data kb reviewed: vital signs, nurses notes. 17:02 Historians other than the Patient: EMS: [facility]. Counseling: I had a detailed kb discussion with the patient and/or guardian regarding: the historical points, exam findings, and any diagnostic results supporting the discharge/admit diagnosis, radiology results, the need for outpatient follow up, a orthopedic surgeon, to return to the emergency department if symptoms worsen or persist or if there are any questions or concerns that arise at home. 09/23 15:03 Order name: US Extremity Venous Unilateral Ltd; Complete Time: 16:50 kb 09/23 15:03 Order name: Ankle Right 3 View XRAY; Complete Time: 15:50 kb 09/23 15:03 Order name: Ankle Left 3 View XRAY; Complete Time: 15:50 kb 09/23 16:50 Order name: Walking boot; Complete Time: 17:09 kb Administered Medications: 17:09 Drug: traMADol PO 50 mg Route: PO; bp 17:22 Follow up: Response: No adverse reaction bp Disposition: 17:36 Co-signature as Attending Physician, Otoniel Gomez MD I reviewed the patient's care rn provided by the Advanced Practice Provider and agree with the diagnosis and treatment plan. Disposition Summary: 09/23/22 16:58 Discharge Ordered Location: Home kb Condition: Stable kb Diagnosis - Nondisplaced left ankle fracture kb - Fall on same level from slipping, tripping and stumbling without subsequent kb striking against object Followup: kb - With: Emergency Department - When: As needed - Reason: Worsening of condition Followup: kb - With: Private Physician - When: 2 - 3 days - Reason: Recheck today's complaints, Continuance of care, Re-evaluation by your physician Discharge Instructions: - Discharge Summary Sheet kb - Ankle Fracture, [id number] kb Forms: - Medication Reconciliation Form kb - Thank You Letter kb - Antibiotic Education kb - Prescription Opioid Use kb Signatures: Dispatcher [employer] EDNo Valencia FNP-C FNP-Ckb Otoniel Gomez MD MD rn Peltier, Brian, RN RN bp
[2022-09-23] MEDS ORDERED: TRAMADOL HCL 50 MG TAB ONE (17:11)
[2022-09-23 17:27] VITALS: TEMP 98
[2022-09-23 17:29] VITALS: O2SAT 96
[2022-09-23 17:31] VITALS: BP 106/88
== END 2022-09-23 17:22 | disposition home or self-care (01) ==
LOC: ER 14:56
DX: S82.892A Other fracture of left lower leg, initial encounter for closed fracture (principal); W01.0XXA Fall on same level from slipping, tripping and stumbling without subsequent striking against object, initial encounter
CPT/HCPCS: 93971; 99284

== ENCOUNTER 2023-12-30 08:49 | Emergency (ER) | payer OTHER ==
[2023-12-30 10:28] LABS: Specific Gravity 1.027 (1.005-1.030); Sqamous Epithelial <5 /HPF (None Seen); Urine Bacteria <20 /HPF (<20); Urine Bilirubin 1+ (Negative); Urine Blood Trace (Negative); Urine Clarity Extremely Turbid (Clear); Urine Color Dark-Yellow (Yellow); Urine Culture Reflex Order NOT NEEDED; Urine Glucose NEGATIVE (Negative); Urine Ketones NEGATIVE (Negative); Urine Micro Reflex YN NO BILL MICROSCOPIC; Urine Mucus 4+ /HPF (None Seen); Urine Nitrite NEGATIVE (Negative); Urine Protein 1+ (Negative); Urine Urobilinogen 2+ (Normal); Urine pH 5.5 (5.0-7.0)
[2023-12-30] MEDS ORDERED: NA CHLORIDE 0.9% 1,000 ML ONE (10:59)
[2023-12-30 11:06] LABS: Absolute Eosinophils 0.1 K/uL (0-0.5); Absolute Lymphocytes (CBC) 1.3 K/uL (0.7-4.9); Absolute Monocytes 0.7 K/uL (0.1-1.3); Absolute Neutrophil 3.5 K/uL (1.8-8.0); Basophils % 0.3 % (0-1.3); Eosinophils % 2.2 % (0-4.4); Hematocrit 35.6 % (39.6-49.0); Hemoglobin 12.2 g/dL (13.6-17.9); MCH 40.2 pg (27.0-35.0); MCHC 34.2 g/dL (32.0-36.0); MCV 117.4 fL (80-100); MPV 9.6 fL (7.6-11.3); Monocytes % 12.8 % (3.3-12.3); Neutrophils % 61.7 % (41.7-73.7); Nucleated Red Blood Cells % 0.1 % (0-0); Platelets 108 thou/uL (152-406); RBC Red Blood Cell Count 3.03 M/uL (4.33-5.43); Red Cell Distribution Width 15.9 % (12.1-15.2)
[2023-12-30 11:12] LABS: PT Prothrombin Time 15.2 SECONDS (9.4-12.5); PTT, Activated Partial Thromb 35.9 SECONDS (24.3-36.9); Protime INR 1.37
[2023-12-30 11:24] LABS: Albumin 2.3 g/dL (3.4-5.0); Albumin/Globulin Ratio 0.5 (1.1-1.8); Anion Gap 7.1 mEq/L (5.0-15.0); Bilirubin Total 4.4 mg/dL (0.2-1.0); Globulin 4.2 g/dL (2.3-3.5); Potassium 3.1 mEq/L (3.5-5.1); Protein, Total 6.5 g/dL (6.4-8.2)
[2023-12-30] MEDS ORDERED: POTASSIUM 25 MEQ EFFERV TAB ONE (11:52)
[2023-12-30 12:32] LABS: Anisocytosis 1+; Atypical Lymphocytes 2 %; Band Neutrophils 1 % (0-1); Blood Morphology Comment NOTED (NOT SEEN); Differential Total Cells Count 100; Eosinophils 4 % (0-3); Lymphocytes 38 % (15-42); Macrocytosis 2+; Monocytes 5 % (0-10); Platelet Estimate DECR; Segmented Neutrophils 48 % (40-80); Toxic Granulation 1+
--- NOTE | 2023-12-30 12:56 | RAD REPORT ---
EXAMINATION: CT ABDOMEN AND PELVIS WITH CONTRAST CLINICAL INDICATION: Male, 78 years old. [facility] MAIN HEMATURIA IV ONLY Bed Name: 19 TECHNIQUE: CT abdomen and pelvis was performed, after the administration of IV contrast, as per [facility] protocol. Axial, sagittal and coronal reconstructions were obtained. One or more of the following dose reduction techniques were used: Automated exposure control, adjustment of the mA and k V according to patient size, and iterative reconstruction. Unless otherwise specified, incidental findings do not require dedicated imaging follow-up. COMPARISON: No prior exam. FINDINGS: LOWER CHEST: The tendon subsegmental opacities, favoring atelectasis bilaterally. LIVER: Patchy enhancement throughout the liver, which may reflect micronodularity versus an infectiou s/inflammatory process such as hepatitis. Regions of more diffuse hypoattenuation, suggestive areas of focal fatty infiltration. SPLEEN: Normal size. No focal lesion. PANCREAS: No mass, ductal dilation, or delia-pancreatic fluid. ADRENALS: Normal; no mass. KIDNEYS: Normal size and contour. No hydronephrosis. GASTROINTESTINAL TRACT: No evidence of free air, bowel obstruction or abscess. Mild distal colonic di verticulosis. Mild volume free ascites. APPENDIX: Normal appendix. LYMPH NODES: No lymphadenopathy. MUSCULOSKELETAL: No acute or suspicious osseous abnormality. ADDITIONAL FINDINGS: Fusiform aneurysmal dilation of the infrarenal abdominal aorta, with sac measuri ng up to 4.4 x 4.2 cm. Circumferential organized mural thrombus, and moderately advanced atherosclerotic calcific and noncalcific plaque throughout the remainder of the aorta. Narrowest jacki nal diameter is just above the level of the bifurcation, measuring 2.1 x 2.1 cm. IMPRESSION: Patchy enhancement throughout the liver, which may reflect micronodularity versus infectious/inflamma tory processes such as hepatitis. Please correlate clinically. Mild free ascites. Mild distal colonic diverticulosis. Fusiform aneurysmal dilation of the infrarenal abdominal aorta with sac measuring up to 4.4 cm, with organized peripheral mural thrombus.
--- NOTE | 2023-12-30 13:14 | ER ---
Nurse's Notes [facility] Name: Mark Martin Age: 78 yrs Sex: Male : 1945 Arrival Date: 12/30/2023 Time: 08:49 Bed 19 Private MD: Diagnosis: Hematuria, unspecified;Liver disease, unspecified Presentation: 12/29 09:00 Chief complaint: Patient states: Blood in urine, urinating small amounts, and dysuria ll1 for 5 days. No fever. Coronavirus screen: Client denies travel out of the [place] in the last 14 days. At this time, the client does not indicate any symptoms associated with coronavirus-19. Ebola Screen: Patient denies travel to an Ebola-affected area in the 21 days before illness onset. Initial Sepsis Screen: Does the patient meet any 2 criteria? No. Patient's initial sepsis screen is negative. Does the patient have a suspected source of infection? No. Patient's initial sepsis screen is negative. Risk Assessment: Do you want to hurt yourself or someone else? Patient reports no desire to harm self or others. Onset of symptoms was December 26, 2023. 09:00 Method Of Arrival: Wheelchair ll1 09:00 Acuity: OZIEL 3 ll1 Triage Assessment: 09:02 General: Appears uncomfortable, Behavior is calm, cooperative, appropriate for age. ll1 General: Denies fever. Pain: Denies pain. : Reports burning with urination, pain with urination, blood in urine. Historical: - Allergies: 08:55 No Known Drug Allergies; ll1 - PMHx: 08:55 Hypercholesterolemia; neuropathy; ll1 - Immunization history:: Adult Immunizations up to date. - Infectious Disease History:: Denies. - Social history:: Smoking status: Patient reports the use of cigarette tobacco products, smokes one-half pack cigarettes per day. Screenin:15 [facility] ED Fall Risk Assessment (Adult) History of falling in the last 3 months, rs5 including since admission No falls in past 3 months (0 pts) Confusion or Disorientation No (0 pts) Intoxicated or Sedated No (0 pts) Impaired Gait Yes (1 pt) Mobility Assist Device Used Yes (1 pt) Altered Elimination Yes (1 pt) Score/Fall Risk Level 3 or more points = High Risk Oriented to surroundings, Maintained a safe environment. Abuse screen: Denies threats or abuse. Nutritional screening: No deficits noted. Tuberculosis screening: No symptoms or risk factors identified. Assessment: 08:55 General: Appears in no apparent distress. comfortable, Behavior is calm, cooperative. rs5 08:55 Pain: Denies pain. Neuro: Level of Consciousness is awake, alert, obeys commands, rs5 Oriented to person, place, time, situation. Cardiovascular: Patient's skin is warm and dry. Respiratory: Airway is patent Respiratory effort is even, unlabored, Respiratory pattern is regular, symmetrical. GI: Abdomen is round non-distended, Abd is soft and non tender X 4 quads. : Reports inability to void, blood in urine. EENT: No signs and/or symptoms were reported regarding the EENT system. Derm: Skin is intact, Skin is pink, warm \T\ dry. Musculoskeletal: Range of motion: intact in all extremities. 10:01 Reassessment: Patient and/or family updated on plan of care and expected duration. Pain rs5 level reassessed. Patient is alert, oriented x 3, equal unlabored respirations, skin warm/dry/pink. 11:05 Reassessment: No changes from previously documented assessment. rs5 11:40 Reassessment: No changes from previously documented assessment. rs5 13:01 Reassessment: Patient and/or family updated on plan of care and expected duration. Pain rs5 level reassessed. Patient is alert, oriented x 3, equal unlabored respirations, skin warm/dry/pink. 13:20 Reassessment: No changes from previously documented assessment. rs5 Vital Signs: 09:00 BP 101 / 67; Pulse 101; Resp 18; Temp 97.4; Pulse Ox 92% on R/A; Weight 65.77 kg; ll1 Height 5 ft. 7 in. ; Pain 0/10; 09:16 BP 107 / 68; Pulse 94; Resp 17; Pulse Ox 95% on R/A; rs5 11:40 BP 110 / 72; Pulse 91; Resp 17; Pulse Ox 98% on R/A; rs5 13:20 BP 112 / 77; Pulse 90; Resp 17; Pulse Ox 99% on R/A; rs5 09:00 Body Mass Index 22.71 (65.77 kg, 170.18 cm) ll1 09:00 Pain Scale: Adult ll1 ED Course: 08:53 Patient arrived in ED. ra3 08:54 Charu Lopez PA-C is PHCP. sb4 08:54 Otoniel Gomez MD is Attending Physician. sb4 08:54 Arm band placed on Patient placed in an exam room, on a stretcher. ll1 09:02 Triage completed. ll1 09:06 Josh Au, RN is Primary Nurse. rs5 09:15 Patient has correct armband on for positive identification. Placed in gown. Bed in low rs5 position. Call light in reach. Side rails up X2. 09:15 No provider procedures requiring assistance completed. rs5 10:45 Inserted saline lock: 20 gauge in right antecubital area, using aseptic technique. rs5 Blood collected. Flushed with 10 mL NS. 11:53 CT Abd/Pelvis - IV Contrast Only In Process Unspecified. EDMS 13:13 Carroll Hayden MD is Referral Physician. sb4 13:25 IV discontinued, intact, bleeding controlled, No redness/swelling at site. Pressure rs5 dressing applied. Administered Medications: 10:55 Drug: NS 0.9% IV 1000 ml IV at 1 bolus Per protocol; 1000 mL bolus Route: IV; Rate: 1 rs5 bolus; Site: right antecubital; 12:01 Follow up: Response: No adverse reaction; IV Status: Completed infusion rs5 12:00 Drug: Potassium PO Effervescent Tablet 50 mEq PO once; dissolve in 4 ounces of water or rs5 juice Route: PO; 12:40 Follow up: Response: No adverse reaction rs5 Medication: 09:16 VIS not applicable for this client. rs5 Outcome: 13:14 Discharge ordered by . sb4 13:25 Discharged to home via wheelchair, with family, rs5 13:25 Condition: stable rs5 13:25 Discharge instructions given to patient, family, Instructed on discharge instructions, follow up and referral plans. medication usage, Demonstrated understanding of instructions, follow-up care, medications, Prescriptions given X 1, 13:27 Patient left the ED. rs5 Signatures: Dispatcher [employer] EDMS Kev Cox RN RN ll1 Charu Lopez PA-C PA-C sb4 Josh Au, RN RN rs5 Tania Song ra3
--- NOTE | 2023-12-30 13:14 | EDPHYS ---
Physician Documentation [facility] Name: Mark Martin Age: 78 yrs Sex: Male : 1945 Arrival Date: 12/30/2023 Time: 08:49 Bed 19 Private MD: ED Physician Otoniel Gomez HPI: 12/29 09:14 This 78 yrs old Male presents to ER via Wheelchair with complaints of blood in urine sb4 x5days. 09:14 The patient presents with urinary symptoms, dysuria, retention, hematuria, Last void sb4 was this morning. Onset: The symptoms/episode began/occurred 5 day(s) ago. Modifying factors: The symptoms are alleviated by nothing, the symptoms are aggravated by nothing. Associated signs and symptoms: The patient has no apparent associated signs or symptoms. Severity of symptoms:. The patient has not experienced similar symptoms in the past. The patient has not recently seen a physician. Historical: - Allergies: 08:55 No Known Drug Allergies; ll1 - PMHx: 08:55 Hypercholesterolemia; neuropathy; ll1 - Immunization history:: Adult Immunizations up to date. - Infectious Disease History:: Denies. - Social history:: Smoking status: Patient reports the use of cigarette tobacco products, smokes one-half pack cigarettes per day. ROS: 09:14 Constitutional: Negative for fever, chills, and weight loss, sb4 09:14 : Positive for small amounts, hematuria, difficulty urinating, 09:14 All other systems are negative, Exam: 09:14 Constitutional: This is a well developed, well nourished patient who is awake, alert, sb4 and in no acute distress. Head/Face: Normocephalic, atraumatic. Eyes: Extra-ocular motions intact. Periorbital areas with no swelling, redness, or edema. ENT: Mucous membranes moist. Cardiovascular: Regular rate and rhythm with a normal S1 and S2. Respiratory: Lungs have equal breath sounds bilaterally, clear to auscultation and percussion. No rales, rhonchi or wheezes noted. No increased work of breathing, no retractions or nasal flaring. Abdomen/GI: Soft, non-tender, no distension. Skin: Warm, dry with normal turgor. Normal color with no rashes, no lesions, and no evidence of cellulitis. Vital Signs: 09:00 BP 101 / 67; Pulse 101; Resp 18; Temp 97.4; Pulse Ox 92% on R/A; Weight 65.77 kg; ll1 Height 5 ft. 7 in. ; Pain 0/10; 09:16 BP 107 / 68; Pulse 94; Resp 17; Pulse Ox 95% on R/A; rs5 11:40 BP 110 / 72; Pulse 91; Resp 17; Pulse Ox 98% on R/A; rs5 13:20 BP 112 / 77; Pulse 90; Resp 17; Pulse Ox 99% on R/A; rs5 09:00 Body Mass Index 22.71 (65.77 kg, 170.18 cm) ll1 09:00 Pain Scale: Adult ll1 MDM: 08:55 Patient medically screened. sb4 10:16 Awaiting: labs results, patient has not urinated. sb4 13:16 Data reviewed: vital signs, nurses notes, lab test result(s), EKG, radiologic studies, sb4 I have discussed the patient's presentation/case with the attending Emergency Department Physician; and as a result, I will discharge patient. Historians other than the Patient: Spouse/Significant Other: . Counseling: I had a detailed discussion with the patient and/or guardian regarding the historical points, exam findings, and any diagnostic results supporting the discharge/admit diagnosis, lab results, radiology results, the need for outpatient follow up, for definitive care, a urologist, to return to the emergency department if symptoms worsen or persist or if there are any questions or concerns that arise at home, smoking cessation. Special discussion: I discussed with the patient the need to follow-up with the PCP/specialist for the noted incidental finding on X-ray/CT scanning. ED course: Patient denies any known history of liver disease but he does report a history of heavy alcohol abuse. States that he no longer drinks. I informed him that his lab work is indicating some degree of liver failure. Additionally, he states he went to the restroom and his urine was clear. Will discharge him on antibiotics for suspected cystitis with hematuria as his CT shows some bladder wall thickening. Additionally, I advised him to follow-up with urology for possible cystoscopy. I did inform him that smoking does increase his risk for bladder cancer. He understands. 12/29 09:00 Order name: UAM; Complete Time: 10:39 sb4 12/29 10:45 Order name: CBC with Diff; Complete Time: 12:33 sb4 12/29 10:45 Order name: CMP; Complete Time: 11:27 sb4 12/29 10:45 Order name: PT-INR; Complete Time: 11:15 sb4 12/29 10:45 Order name: Ptt, Activated; Complete Time: 11:15 sb4 12/29 12:32 Order name: Manual Differential; Complete Time: 12:33 EDMS 12/29 10:45 Order name: CT Abd/Pelvis - IV Contrast Only; Complete Time: 12:57 sb4 12/29 09:05 Order name: Bladder Scanner; Complete Time: 09:06 sb4 12/29 10:45 Order name: IV Saline Lock; Complete Time: 10:52 sb4 12/29 10:45 Order name: Labs collected and sent; Complete Time: 10:52 sb4 Administered Medications: 10:55 Drug: NS 0.9% IV 1000 ml IV at 1 bolus Per protocol; 1000 mL bolus Route: IV; Rate: 1 rs5 bolus; Site: right antecubital; 12:01 Follow up: Response: No adverse reaction; IV Status: Completed infusion rs5 12:00 Drug: Potassium PO Effervescent Tablet 50 mEq PO once; dissolve in 4 ounces of water or rs5 juice Route: PO; 12:40 Follow up: Response: No adverse reaction rs5 Disposition: 17:41 Co-signature as Attending Physician, Otoniel Gomez MD I reviewed the patient's care rn provided by the Advanced Practice Provider and agree with the diagnosis and treatment plan. Disposition Summary: 12/30/23 13:14 Discharge Ordered Notes: Location: Home sb4 Problem: an ongoing problem sb4 Symptoms: have improved sb4 Condition: Stable sb4 Diagnosis - Hematuria, unspecified sb4 - Liver disease, unspecified sb4 Followup: sb4 - With: Carroll Hayden MD - When: 1 week - Reason: Further diagnostic work-up, Recheck today's complaints, Re-evaluation by your physician Discharge Instructions: - Discharge Summary Sheet sb4 - Hematuria, Adult sb4 - Alcoholic Liver Disease, [id number] sb4 Forms: - Antibiotic Education sb4 - Patient Portal Instructions sb4 - Leadership Thank You Letter sb4 Prescriptions: - Cipro 500 mg Oral Tablet - take 1 tablet ORAL route every 12 hours for 7 days; 14 tablet; Refills: 0, sb4 Product Selection Permitted Signatures: Dispatcher [employer] EDMS Otoniel Gomez MD MD rn Lewis, Lynsay, RN RN ll1 Charu Lopez, PA-C PA-C sb4 Josh Au, RN RN rs5 Corrections: (The following items were deleted from the chart) 09:00 09:00 Urinalysis W/Microscopic+U.LAB.BRZ ordered. EDMS EDMS 10:45 10:45 CBC+H.LAB.BRZ ordered. EDMS EDMS 10:45 10:45 COMPREHENSIVE METABOLIC PANEL+C.LAB.BRZ ordered. EDMS EDMS 10:45 10:45 PROTIME (+INR)+COAG.LAB.BRZ ordered. EDMS EDMS 10:45 10:45 PTT, ACTIVATED+COAG.LAB.BRZ ordered. EDMS EDMS 10:45 10:45 Abdomen Pelvis W Con+CT.RAD.BRZ ordered. EDMS EDMS
[2023-12-30 13:45] VITALS: TEMP 97.4
[2023-12-30 13:47] VITALS: BP 110/72; O2SAT 98
== END 2023-12-30 13:27 | disposition home or self-care (01) ==
LOC: ER 08:49
DX: R31.9 Hematuria, unspecified (principal); K76.9 Liver disease, unspecified; F17.210 Nicotine dependence, cigarettes, uncomplicated
CPT/HCPCS: 85025; 81001; 36415; 85610; 85730; 80053; 74177; Q9967; J7030; 96360; 99284

== ENCOUNTER 2024-04-18 18:21 | Emergency (ER) | payer OTHER ==
[2024-04-18 19:19] LABS: Absolute Basophils 0.1 K/uL (0-0.5); Absolute Eosinophils 0.1 K/uL (0-0.5); Absolute Lymphocytes (CBC) 1.6 K/uL (0.7-4.9); Absolute Monocytes 0.7 K/uL (0.1-1.3); Absolute Neutrophil 3.6 K/uL (1.8-8.0); Basophils % 1.2 % (0-1.3); Eosinophils % 1.3 % (0-4.4); Hematocrit 42.2 % (39.6-49.0); Hemoglobin 14.6 g/dL (13.6-17.9); Lymphocytes % 26.8 % (15.3-44.8); MCH 37.1 pg (27.0-35.0); MCHC 34.7 g/dL (32.0-36.0); MPV 8.1 fL (7.6-11.3); Monocytes % 11.2 % (3.3-12.3); Neutrophils % 59.5 % (41.7-73.7); Nucleated Red Blood Cells % 0.4 % (0-0); Platelets 107 thou/uL (152-406); RBC Red Blood Cell Count 3.94 M/uL (4.33-5.43); Red Cell Distribution Width 16.5 % (12.1-15.2)
[2024-04-18 19:25] LABS: PT Prothrombin Time 14.8 SECONDS (9.4-12.5); Protime INR 1.33
--- NOTE | 2024-04-18 19:34 | RAD REPORT ---
EXAMINATION: ONE VIEW CHEST XR CLINICAL INDICATION: DYSPNEA TECHNIQUE: Frontal chest projection is submitted. Examination is limited by patient positioning and t echnique. COMPARISON: 07/08/2021 FINDINGS: Elevated right hemidiaphragm is noted, new since prior study.. Atelectasis is present in the right demetrio ng base. The lungs appear emphysematous. The heart is normal in size. No displaced fractures identified.
[2024-04-18 19:50] LABS: Albumin 1.8 g/dL (3.4-5.0); Albumin/Globulin Ratio 0.3 (1.1-1.8); Anion Gap 11.5 mEq/L (5.0-15.0); Bilirubin Direct 1.8 mg/dL (0-0.2); Bilirubin Indirect, Calculated 2.7 mg/dL (0.2-0.8); Bilirubin Total 4.5 mg/dL (0.2-1.0); Globulin 5.5 g/dL (2.3-3.5); Potassium 3.5 mEq/L (3.5-5.1); Protein, Total 7.3 g/dL (6.4-8.2); Troponin High Sensitivity 13.2 pg/mL (<58.9)
[2024-04-18 20:04] LABS: Band Neutrophils 14 % (0-1); Differential Total Cells Count 100; Eosinophils 2 % (0-3); Lymphocytes 22 % (15-42); Monocytes 8 % (0-10); Reactive Lymphocytes 1 %; Segmented Neutrophils 53 % (40-80)
[2024-04-18 20:05] LABS: Blood Morphology Comment NOTED (NOT SEEN); Macrocytosis 1+; Platelet Estimate ADEQ
--- NOTE | 2024-04-18 20:33 | RAD REPORT ---
EXAMINATION: CT ABDOMEN AND PELVIS WITH CONTRAST CLINICAL INDICATION: Abd pain;Abdominal distention TECHNIQUE: CT abdomen and pelvis was performed, after the administration of IV contrast, [facility]. Axial, sagittal and coronal reconstructions were obtained. One or more of the following dose reduction techniques were used: Automated exposure control, adjustment of the mA and k V according to patient size, and iterative reconstruction. Unless otherwise specified, incidental findings do not require dedicated imaging follow-up. COMPARISON: No prior exam. FINDINGS: LOWER CHEST: Airspace opacity in the medial right lung base is present. Prominent air cyst is present measuring 3 cm in the right base laterally. Trace pleural fluid bilaterally. Small hiatal hernia. LIVER: Markedly small and nodular liver compatible with advanced cirrhosis. Grossly unremarkable gall bladder. SPLEEN: Normal size. No focal lesion. PANCREAS: No mass, ductal dilation, or delia-pancreatic fluid. ADRENALS: Normal; no mass. KIDNEYS: Normal size and contour. No hydronephrosis. GASTROINTESTINAL TRACT: No evidence of free air, significant intra-abdominal free fluid, bowel obstru ction or abscess. Sigmoid diverticulosis coli without diverticulitis. APPENDIX: Appendix not visualized, but no inflammatory changes in region of appendix. LYMPH NODES: No lymphadenopathy. MUSCULOSKELETAL: Mild lumbar degenerative changes. ADDITIONAL FINDINGS: Large volume of ascites is present. 4.5 cm infrarenal abdominal aortic aneurysm. IMPRESSION: Large volume of ascites is present. Advanced liver cirrhosis.
--- NOTE | 2024-04-18 20:51 | ER ---
Nurse's Notes [facility] Name: Mark Martin Age: 78 yrs Sex: Male : 1945 Arrival Date: 04/18/2024 Time: 18:21 Bed 18 Private MD: Diagnosis: Alcoholic cirrhosis of liver with ascites;Hypoxemia Presentation: 04/18 18:20 Chief complaint: EMS states: PATIENT IS FROM HOME WITH ABDOMINAL SWELLING X 2 DAYS WITH db WHEEZES. NOTED BILATERAL LEG SWELLING. STATES HAS HX OF "ABDOMINAL ANEURYSM". Coronavirus screen: Client denies travel out of the [place] in the last 14 days. At this time, the client does not indicate any symptoms associated with coronavirus-19. Ebola Screen: Patient negative for fever greater than or equal to 101.5 degrees Fahrenheit, and additional compatible Ebola Virus Disease symptoms Patient denies exposure to infectious person. Patient denies travel to an Ebola-affected area in the 21 days before illness onset. No symptoms or risks identified at this time. Initial Sepsis Screen: Does the patient meet any 2 criteria? No. Patient's initial sepsis screen is negative. Does the patient have a suspected source of infection? No. Patient's initial sepsis screen is negative. Risk Assessment: Do you want to hurt yourself or someone else? Patient reports no desire to harm self or others. Onset of symptoms was April 18, 2024. 18:20 Method Of Arrival: EMS: [facility] db 18:20 Acuity: OZIEL 2 db Triage Assessment: 18:20 General: Appears in no apparent distress. uncomfortable, Behavior is calm, cooperative. db Pain: Complains of pain in abdomen. Neuro: Level of Consciousness is awake, alert, obeys commands, Oriented to person, place, time, situation. Respiratory: Airway is patent Respiratory effort is even, unlabored, Respiratory pattern is regular, symmetrical, Breath sounds with wheezes. GI: Abdomen is round distended. Historical: - Allergies: 18:43 No Known Allergies; db - PMHx: 18:43 Hypercholesterolemia; neuropathy; db - Immunization history:: Adult Immunizations unknown. - Infectious Disease History:: Denies. - Social history:: Smoking status: unknown. Screenin:41 [facility] ED Fall Risk Assessment (Adult) History of falling in the last 3 months, cp4 including since admission No falls in past 3 months (0 pts) Confusion or Disorientation No (0 pts) Intoxicated or Sedated No (0 pts) Impaired Gait No (0 pts) Mobility Assist Device Used No (0 pt) Altered Elimination No (0 pt) Score/Fall Risk Level 0 - 2 = Low Risk Oriented to surroundings, Maintained a safe environment, Assessed \\T\\ reinforced patient's understanding of fall precautions, Hourly rounding (assess needs \\T\\ fall precautionary measures) done. Abuse screen: Denies threats or abuse. Nutritional screening: No deficits noted. Tuberculosis screening: No symptoms or risk factors identified. Assessment: 19:41 General: Appears in no apparent distress. uncomfortable, Behavior is calm, cooperative, cp4 appropriate for age. Pain: Denies pain. Neuro: Level of Consciousness is awake, alert, obeys commands, Oriented to person, place, time, situation. Cardiovascular: Patient's skin is warm and dry. Respiratory: Airway is patent Respiratory effort is even, unlabored, Breath sounds with wheezes bilaterally. GI: Abdomen is distended. : No signs and/or symptoms were reported regarding the genitourinary system. EENT: No signs and/or symptoms were reported regarding the EENT system. Derm: No signs and/or symptoms reported regarding the dermatologic system. Musculoskeletal: No signs and/or symptoms reported regarding the musculoskeletal system. 22:46 Reassessment: 4L of fluid pulled off abdomen. Patient repositioned on right side per cp4 provider. 23:27 Reassessment: 800 mL of fluid pulled off abdomen prior to transfer. Total 4800 mL. cp4 Vital Signs: 18:20 BP 103 / 82; Pulse 100; Resp 18; Temp 97.6; Pulse Ox 88% on R/A; Weight 65.77 kg (M); db Height 5 ft. 7 in. ; 19:57 BP 104 / 72; Pulse 101; Resp 18; Pulse Ox 95% on 3 lpm NC; cp4 21:00 BP 102 / 74; Pulse 98; Resp 18; Pulse Ox 95% on 3 lpm NC; cp4 22:00 BP 92 / 72; Pulse 94; Resp 18; Pulse Ox 97% on 3 lpm NC; cp4 23:00 BP 98 / 59; Pulse 92; Resp 18; Pulse Ox 95% on 3 lpm NC; cp4 18:20 Body Mass Index 22.71 (65.77 kg, 170.18 cm) db 18:20 PLACED ON 4L NC O2 INCREASED TO 94% db ED Course: 18:20 Arm band placed on Patient placed in an exam room. db 18:28 Patient arrived in ED. eb 18:32 Shawna Stout FNP [facility]. jh7 18:32 Rodney Gonzalez MD is Attending Physician. jh7 18:41 Theodora Heller, RN is Primary Nurse. db 18:43 Triage completed. db 19:14 Stella Rojas is Primary Nurse. cp4 19:14 Initial lab(s) drawn, by me, sent to lab. Inserted saline lock: 22 gauge in right cp4 antecubital area, using aseptic technique. Blood collected. Flushed with 10 mL NS. 19:23 XRAY Chest (1 view) In Process Unspecified. EDMS 19:41 Placed in gown. Bed in low position. Call light in reach. Side rails up X2. cp4 19:41 No provider procedures requiring assistance completed. cp4 20:23 CT Abd/Pelvis - IV Contrast Only In Process Unspecified. EDMS 20:47 Attending Physician role handed off by Rodney Gonzalez MD sp4 20:47 Scotty Stevens MD is Attending Physician. sp4 21:29 Transfer initiated \\T\\ 2124. hw 22:44 Patient accepted to [facility] \\T\\ [address] Newell. patient going to room 713, number for report is [phone]. 23:06 Nurse to nurse given at 2258. [facility] to transport. hw 23:30 Provided Education on: transfer. cp4 23:30 Assist provider with paracentesis which returned 4800 ml's. clear yellow fluid.. Set up cp4 for procedure. Performed by Scotty Stevens MD Patient tolerated well. 23:31 Patient transferred, IV remains in place. cp4 Administered Medications: 22:35 Drug: Albumin IVPB 50 grams 100 ml IVPB once; (Note: Albumin 25% concentration) Volume: cp4 100 ml; Route: IVPB; Site: right antecubital; 23:28 Follow up: IV Status: Infusion continued upon transfer cp4 Medication: 19:41 VIS not applicable for this client. cp4 Outcome: 20:50 ER care complete, transfer ordered by . mart 23:31 Transferred by ground EMS to [facility], [facility], Transfer form completed. cp4 X-rays sent w/ patient. 23:31 Condition: stable 23:31 Instructed on the need for transfer, 23:46 Patient left the ED. ha1 Signatures: Dispatcher [employer] EDIA Sagrario No Jennifer, PIPE ORGAN INSTALLER PIPE ORGAN INSTALLER 7 Aylin Macario RN RN 1 Theodora Heller RN RN db Potepalov, Sergey, MD MD sp4 Stella Rojas 4 Adrienne Alvarado
--- NOTE | 2024-04-18 20:51 | EDPHYS ---
Physician Documentation [facility] Name: Mark Martin Age: 78 yrs Sex: Male : 1945 Arrival Date: 04/18/2024 Time: 18:21 Bed 18 Private MD: ED Physician Scotty Stevens HPI: 04/18 18:43 This 78 yrs old Male presents to ER via EMS with complaints of Abdominal Swelling. [facility] 18:43 78-year-old male with a past medical history of cirrhosis of the liver and AAA presents [facility] to the ER for progressive abdominal distention over the past 3 months. He reports that he has also noticed that his legs have become swollen and he has become progressively more short of breath. He reports that he quit smoking and drinking back in December.. Historical: - Allergies: 18:43 No Known Allergies; db - PMHx: 18:43 Hypercholesterolemia; neuropathy; db - Immunization history:: Adult Immunizations unknown. - Infectious Disease History:: Denies. - Social history:: Smoking status: unknown. ROS: 18:43 Constitutional: Per HPI 7 Exam: 18:43 Head/Face: Normocephalic, atraumatic. Neck: Trachea midline, no thyromegaly or masses jh7 palpated, and no cervical lymphadenopathy. Supple, full range of motion without nuchal rigidity, or vertebral point tenderness. No Meningismus. 18:43 Back: No spinal tenderness. No costovertebral tenderness. Full range of motion. MS/ Extremity: Pulses equal, no cyanosis. Neurovascular intact. Full, normal range of motion. Neuro: Awake and alert, GCS 15, oriented to person, place, time, and situation. Motor strength 5/5 in all extremities. Sensory grossly intact. Normal gait. 18:43 Cardiovascular: Edema: 3+ edema to level of left midcalf, left ankle, right midcalf and right ankle, 18:43 Respiratory: mild respiratory distress is noted, Respirations: labored breathing, that is mild, Breath sounds: decreased breath sounds, that are mild, are scattered, 18:43 Abdomen/GI: Inspection: distension, that is moderate, in the abdomen, Bowel sounds: normal, Palpation: mild abdominal tenderness, in the epigastric area, 18:43 Skin: Appearance: Color: pale, Vital Signs: 18:20 BP 103 / 82; Pulse 100; Resp 18; Temp 97.6; Pulse Ox 88% on R/A; Weight 65.77 kg (M); db Height 5 ft. 7 in. ; 19:57 BP 104 / 72; Pulse 101; Resp 18; Pulse Ox 95% on 3 lpm NC; cp4 21:00 BP 102 / 74; Pulse 98; Resp 18; Pulse Ox 95% on 3 lpm NC; cp4 22:00 BP 92 / 72; Pulse 94; Resp 18; Pulse Ox 97% on 3 lpm NC; cp4 23:00 BP 98 / 59; Pulse 92; Resp 18; Pulse Ox 95% on 3 lpm NC; cp4 18:20 Body Mass Index 22.71 (65.77 kg, 170.18 cm) db 18:20 PLACED ON 4L NC O2 INCREASED TO 94% db Procedures: 21:35 Paracentesis: The risks and benefits of the procedure were discussed with the patient [facility] or guardian in detail, aseptic technique was employed throughout the procedure, the catheter was placed in the right lower quadrant, appoximately 4.8 liters of fluid was removed, the fluid was normal, the patient tolerated the procedure well, the patient did not experience any apparent complications. MDM: 18:32 Medical Screening Exam initiated 7 21:45 Differential diagnosis: Ascites due to alcoholic cirrhosis of the liver, pneumonia, [facility] pulmonary edema, new onset CHF. Data reviewed: vital signs, nurses notes, lab test result(s), EKG, radiologic studies, CT scan, plain films. Consideration of Admission/Observation The patient will be transferred for higher level of care. Management of patient was discussed with the following: Hospitalist: Dr. Rivera, hospitalist at [facility]. Independent interpretation of the following test(s) in the Emergency Department EKG: See my EKG interpretation above. Historians other than the Patient: Spouse/Significant Other: . Care significantly affected by the following chronic conditions: Liver Disease. Counseling: I had a detailed discussion with the patient and/or guardian regarding the historical points, exam findings, and any diagnostic results supporting the discharge/admit diagnosis, the need to transfer to another facility, for higher level of care, [facility] does not immediately have the required specialist. Response to treatment: the patient's symptoms have mildly improved after treatment. ED course: The patient's oxygen saturation improved after paracentesis procedure. He will be transferred for the required specialty, hepatology, and remained hemodynamically stable throughout his ER stay. All questions and concerns were addressed and all relevant clinical information was relayed to the accepting physician.. 04/18 18:54 Order name: Basic Metabolic Panel; Complete Time: 20:06 [facility] 04/18 18:54 Order name: CBC with Diff; Complete Time: 20:06 [facility] 04/18 18:54 Order name: LFT's; Complete Time: 20:06 [facility] 04/18 18:54 Order name: NT PRO-BNP; Complete Time: 20:06 [facility] 04/18 18:54 Order name: PT-INR; Complete Time: 19:36 [facility] 04/18 18:54 Order name: Troponin HS; Complete Time: 20:06 [facility] 04/18 19:23 Order name: Manual Differential; Complete Time: 20:06 [facility] 04/18 18:54 Order name: XRAY Chest (1 view); Complete Time: 19:36 [facility] 04/18 19:37 Order name: CT Abd/Pelvis - IV Contrast Only; Complete Time: 20:37 [facility] 04/18 18:54 Order name: EKG; Complete Time: 18:54 [facility] 04/18 18:54 Order name: Cardiac monitoring; Complete Time: 19:14 [facility] 04/18 18:54 Order name: EKG - Nurse/Tech; Complete Time: 19:24 [facility] 04/18 18:54 Order name: IV Saline Lock; Complete Time: 19:14 [facility] 04/18 18:54 Order name: Labs collected and sent; Complete Time: 19:14 [facility] 04/18 18:54 Order name: O2 Per Protocol; Complete Time: 19:14 [facility] 04/18 18:54 Order name: O2 Sat Monitoring; Complete Time: 19:14 [facility] 04/18 18:54 Order name: Oxygen; Complete Time: 19:24 [facility] 04/18 20:49 Order name: Misc. Order: Consent for Paracentesis; Complete Time: 21:15 jh7 EC:43 Rate is 103 beats/min. Rhythm is regular. QRS [place] is Normal. IA interval is normal at jh7 170 msec. QRS interval is normal at 84 msec. QT interval is normal at 368 msec. No Q waves. T waves are Normal. No ST changes noted. Clinical impression: Sinus tachycardia. Administered Medications: 22:35 Drug: Albumin IVPB 50 grams 100 ml IVPB once; (Note: Albumin 25% concentration) Volume: cp4 100 ml; Route: IVPB; Site: right antecubital; 23:28 Follow up: IV Status: Infusion continued upon transfer cp4 Disposition: 04/19 18:43 Co-signature as Attending Physician, Scotty Stevens MD I agree with the assessment sp4 and plan of care. I reviewed the patient's care provided by Advanced Practice Provider \T\ agree w/ the diagnosis \T\ care plan. I personally saw the pt \T\ performed a substantive portion of the visit, incldng all aspects of the (History/Exam/Medical Decision Making). Disposition Summary: 04/18/24 20:50 Transfer Ordered Notes: Transfer Location: [place] [address] Reason: Higher level of care [facility] Condition: Stable [facility] Problem: an ongoing problem 7 Symptoms: have worsened jh7 Accepting Physician: Jason RVIAS(04/18/24 23:46) ha1 Diagnosis - Alcoholic cirrhosis of liver with ascites jh7 - Hypoxemia jh Forms: - Medication Reconciliation Form 7 - SBAR form 7 Signatures: Dispatcher [employer] Shawna Garcia, COMMUNITY AIDE COMMUNITY AIDE 7 Aylin Macario RN RN ha1 Theodora Heller RN RN db Potepalov, Sergey, MD MD 4 Stella Rojas 4 Corrections: (The following items were deleted from the chart) 04/18 18:54 18:54 BASIC METABOLIC PANEL+C.LAB.BRZ ordered. EDMS EDMS 18:54 18:54 CBC+H.LAB.BRZ ordered. EDMS EDMS 18:54 18:54 HEPATIC FUNCTION+C.LAB.BRZ ordered. EDMS EDMS 18:54 18:54 PROBNP+C.LAB.BRZ ordered. EDMS EDMS 18:54 18:54 PROTIME (+INR)+COAG.LAB.BRZ ordered. EDMS EDMS 18:54 18:54 Troponin High Sensitivity+C.LAB.BRZ ordered. EDMS EDMS 19:47 18:43 78-year-old male with a past medical history of cirrhosis of the liver presents jh7 to the ER for progressive abdominal distention over the past 3 months. He reports that he has also noticed that his legs have become swollen and he has become progressively more short of breath. He reports that he quit smoking and drinking back in December.. [facility] 20:50 20:50 Accepting MD mart cevallos 23:46 20:50 Accepting MD cevallos ha1
[2024-04-18] MEDS ORDERED: ALBUMIN HUMAN 25% 200 ML IV ONE (21:18)
[2024-04-19 00:21] VITALS: BP 98/59; O2SAT 95
--- NOTE | 2024-04-27 11:16 | EKG ---
Test Date: 2024-04-18 Test Time: 19:28:34 Processing Associate: CHANTE MEASUREMENT RESULTS: Intervals: Rate: 103 OH: 170 QRSD: 84 QT: 368 QTc: 482 [place]: P: 31 OH: 170 QRS: 12 T: -13 INTERPRETIVE STATEMENTS: Sinus tachycardia Low voltage QRS Borderline ECG Compared to ECG 07/08/2021 21:26:40 Low QRS voltage now present Sinus rhythm no longer present Electronically Signed On 04-27-24 11:02:39 MARINA MANAGER by Ed Jacobs
== END 2024-04-18 23:46 | disposition short-term general hospital (02) ==
LOC: ER 18:21
PROC: 0W9G3ZZ Drainage of Peritoneal Cavity, Percutaneous Approach (ICD-10-PCS; principal; 2024-04-18)
DX: K70.31 Alcoholic cirrhosis of liver with ascites (principal); R09.02 Hypoxemia; I10 Essential (primary) hypertension
CPT/HCPCS: 96365; 93005; 85025; 80048; 36415; 85610; 80076; 84484; 83880; 74177; 71045; 99285; 49082; Q9967; P9047